=== PATIENT | female | born 1985 | race Caucasian/White ===

== ENCOUNTER 2020-11-10 11:28 | Outpatient (CLI) | payer OTHER, SELFPAY ==
[2020-11-10 12:38] LABS: Prealbumin 20.7 mg/dL (17.6-36.0)
[2020-11-10 13:15] LABS: Iron 44 ug/dL (37-170)
== END 2020-11-10 11:29 | disposition home or self-care (01) ==
LOC: ANHLAB 11:32
PROVIDERS: PCP Physician Assistant; Visit Provider Surgery Plastic and Reconstructive Surgery
DX: Z98.84 Bariatric surgery status (principal)
CPT/HCPCS: 36415; 83540; 84134

== ENCOUNTER 2020-11-17 12:22 | Outpatient (CLI) | payer OTHER, SELFPAY ==
[2020-11-20 10:33] LABS: Vitamin B1 9 nmol/L (8-30)
== END 2020-11-17 12:23 | disposition home or self-care (01) ==
LOC: ANHLAB 12:23
PROVIDERS: PCP Physician Assistant; Visit Provider Surgery Plastic and Reconstructive Surgery
DX: L57.4 Cutis laxa senilis (principal)
CPT/HCPCS: 36415; 84425

== ENCOUNTER → 2020-11-19 03:07 | Outpatient (CLI) | payer OTHER, SELFPAY ==
[2020-11-19 19:46] LABS: SARS-CoV-2 RNA PCR Negative
== END ==
PROVIDERS: PCP Physician Assistant; Visit Provider Surgery Plastic and Reconstructive Surgery
DX: Z01.812 Encounter for preprocedural laboratory examination (principal); Z20.822 Contact with and (suspected) exposure to COVID-19
CPT/HCPCS: C9803; U0003; U0005

== ENCOUNTER 2020-11-22 00:06 | Day surgery (SDC) | payer OTHER, SELFPAY ==
[2020-11-15 08:17] VITALS: BMI 28.6
[2020-11-22] VITALS (9 sets, daily range): BP systolic 100–130; BP diastolic 53–75; PULSE 67–110; RESP 14–18; TEMP 36.6–37.4; O2SAT 90–99
[2020-11-22] MEDS: LACTATED RINGERS 1,000 ML 30 ML IV CONT ×2 (10:13→14:21)
--- NOTE | 2020-11-22 10:23 | WPDANESEPPF ---
Anes - Initial Pre Proc Eval Procedure: Operation Date: 11/22/20 12:00 Proposed Procedures p Abdominoplasty - Ady Hardy MD Date/Time: 11/22/20 10:23 Surgeon: Ady Hardy MD Pre Op Diagnosis: Skin laxity Patient Data Age: 35 Gender: F Height: 5 ft 5 in Weight: 80.5 kg Last Vital Signs Temp 36.6 C 11/22/20 10:11 Pulse 72 11/22/20 10:11 BP 130/68 11/22/20 10:11 Pulse Ox 99 11/22/20 10:11 Allergies Allergy/AdvReac Type Severity Reaction Status Date / Time No Known Allergies Allergy Unverified 11/22/20 10:09 Home Medications Medication Instructions Recorded Confirmed Type escitalopram oxalate 10 mg tablet 10 mg PO DAILY 11/07/20 11/22/20 History acetaminophen 650 mg PO ONCE PRN 11/15/20 11/15/20 History ibuprofen 800 mg PO Q6H PRN 11/15/20 11/22/20 History Laboratory Tests 11/22/20 09:56 Cotinine Pending Patient hx anesthesia problems: none Family hx anesthesia problems: none [facility] Family History Family History Mother Family history of congestive heart failure Social History Social History Smoking status: Former smoker Tobacco type: e-cigarettes/vaping Additional smoking assessment comments: STOPPED SMOKING 2010, VAPING 2019 Alcohol intake: current Drinks per week: 1 Living arrangements: with family Anes - Eval Final PreProcedure Day of Procedure 11/22/20 10:23 Patient weight: overweight Heart: regular rate and rhythm Lungs: clear to auscultation Airway: Mallampati scale class 1 Neurological: alert and oriented Last oral intake: >/= 8 hours ASA classification: II Emergent: no Anesthetic plan: proceed Anesthesia type and monitoring: general and standard monitoring Informed Consent: The patient's anesthetic plan and its attendant risks and benefits were discussed with the patient/family/POA. Questions were solicited and answers provided to the satisfaction of the patient/family/POA.
--- NOTE | 2020-11-22 10:30 | WPDHPUPDATE1 ---
History and Physical Update Update Date/Time: 11/22/20 10:30 History and Physical has been reviewed, including an updated exam of the patient. There are NO changes in the patient's condition. Risks, benefits, and alternatives have been discussed and questions answered. Patient agrees to proceed with procedure.
[2020-11-22] MEDS: SCOPOLAMINE 1.5 MG PATCH TRANSDERM (10:42)
--- NOTE | 2020-11-22 10:54 | PM.PROC ---
Procedure Note - Detailed Date of procedure: 11/22/20 Pre-op diagnosis: Skin laxity Post-op diagnosis: same Procedure performed: Progressive tension abdominoplasty Description of procedure: She is here today for abdominoplasty. Previously and again today the risks, benefits, alternatives were discussed in extensive detail. I wanted her to be very realistic about the risks involved as well as expectations. She declines [id number] understanding she will likely have horizontal laxity following the procedure. We discussed aftercare and what to monitor for. I was very upfront about the risks of wound breakdown leading to loss of skin, open wounds, and need for additional procedures with permanent abdominal deformity. We discussed DVT/PE risks and management. Made sure answered all of her questions to her satisfaction today and consent was obtained. She was marked in the preoperative holding area with their verification. The patient was taken to the operating room placed supine on the operating table. Anesthesia was provided by anesthesiology. A guerrero catheter was started. She was prepped and draped in a standard sterile fashion. A surgical time-out was taken. I placed the patient in a flexed position to verify the upper and lower markings would reach. I then placed her supine. A thorough abdominal examination was completed. Stab incisions were made and used tumescent solution. A 10 blade was used to make the upper incision. I continued dissection down to the level of fascia. Elevated just what was necessary for repair of the diastasis and discontinuous undermining otherwise using a 4mm basket cannula without suction. I then again flexed the bed to verify the upper skin flap would reach the lower markings without tension. Once verified I placed her supine once again and a 10 blade used to make the lower incision. I elevated up to level the umbilicus and left the umbilicus intact on a well-vascularized stalk. The intervening tissue was removed. A 2 mm blunt cannula and Exparel which was mixed 20 cc in 100 cc for a total volume of 120 cc I injected deep to the fascia bilaterally as well as along the incision lines. I plicated the diastasis recti using 0 PDO stratafix barbed suture. This was in 2 separate layers using 2 separate sutures as well. I repaired around the umbilicus leaving plenty of room for well-vascularized stalk of the umbilicus with 2-0 PDS. I also plicated obliques using 0 PDO stratafix barbed suture in 2 seperate layers. The patient was flexed and starting from superior to inferior began plication using 2-0 Vicryl to obliterate all space in a standard progressive tension fashion. At the umbilicus I marked out the location of the skin and inset this with 3-0 Monocryl and 4-0 nylon. I continued the remainder of the plication using 2-0 Vicryl until I reached my lower planned scar line. I trimmed any excess skin of the upper flap making sure this was a tension-free closure. I then approximated using a 3 point suture with 2-0 Vicryl followed by 3-0 stratafix ,running subcuticular 4-0 Monocryl, and tissue glue. Fluffs and an abdominal binder were placed. The patient was transferred to the bed in a flexed position. Awoken and taken to the PACU without difficulty. All instrument and sponge counts were correct at the end of the case. Anesthesia: GLMA Surgeon: Ady Hardy MD Estimated blood loss (mL): 50 Drains: No Packing: No Pathology: none sent Complications: No immediate complications Condition: stable Findings: Tissue removed 3084.7 grams
[2020-11-22] MEDS: ceFAZolin 2 GM/D5W 50 ML 2 GM/50 ML BAG IVPB (11:12)
[2020-11-22] MEDS: LACTATED RINGERS IRRIG 1,000 ML, LIDOCAINE HCL 1% LOCAL INJ 50 ML, EPINEPHrine HCL INJ ... INFILTRATE ×2 (11:35)
[2020-11-22] MEDS: TRANEXAMIC ACID 1,000 MG/10 ML AMPUL 1000 MG IV PUSH (12:45)
[2020-11-22] MEDS: fentaNYL CITRATE INJ (*CRX) 100 MCG/2 ML VIAL 25 MCG IV PUSH ×2 (14:33→14:42)
--- NOTE | 2020-11-22 14:47 | SUR.PHASEI ---
O2 removed at 1446.
--- NOTE | 2020-11-22 15:27 | SUR.PHASEI ---
1525: Tried to give report report to RN and she has to call back.
--- NOTE | 2020-11-22 15:47 | OBPPTRN ---
Patient transferred to post room # 288 via bed. Oriented to unit, room, information board, rooming in, admission packet and security measures. Patient verbalizes understanding.
[2020-11-22] MEDS: LACTATED RINGERS 1,000 ML 125 ML IV CONT (16:09)
[2020-11-22] MEDS: oxyCODONE/ACETAMINOPHEN (*CRX) 5-325 MG TABLET PO (17:24)
[2020-11-22] MEDS: carisoprodoL (*CRX) 350 MG TABLET PO (17:24)
[2020-11-22] MEDS: ENOXAPARIN 40 MG/0.4 ML SYRINGE SUB-Q (21:00)
[2020-11-22] MEDS: DOCUSATE SODIUM 100 MG CAPSULE PO (21:00)
[2020-11-23] MEDS: oxyCODONE/ACETAMINOPHEN (*CRX) 5-325 MG TABLET PO ×2 (00:15→05:47)
[2020-11-23] MEDS: carisoprodoL (*CRX) 350 MG TABLET PO ×2 (00:15→05:47)
[2020-11-23 05:14] VITALS: BP 93/52; PULSE 69; RESP 16; TEMP 36.9
--- NOTE | 2020-11-23 06:38 | WPDPN ---
Progress Note: A&P Assessment and Plan (1) Skin laxity: Code(s): L57.4 - Cutis laxa senilis Status: Acute Assessment and Plan: She is doing very well after progressive tension abdominoplasty. Will discharge home. Follow up in 1 week. Today we had an extensive conversation about the care. Made sure answered all of her questions to her understanding. (2) History of weight loss surgery: Code(s): Z98.84 - Bariatric surgery status Status: Acute Time Spent With Patient Time with patient: 15 - 25 minutes Review of Systems Review of Systems: All systems reviewed & are unremarkable except as noted in HPI and below Exam Narrative: Exam Narrative: Abdomen is healing well. No signs of infection. No hematoma. No seroma. Good color and capillary refill. No calf tenderness. Negative Homans. Const: General: comfortable, no acute distress, alert and awake; No acute distress Orientation/consciousness: oriented to person HENMT: Head: normal to inspection Ears: external ears normal General nose exam: Normal external nose present Face and sinus: normal facial exam Eyes: General: appearance normal, both eyes and all related structures Periorbital: periorbital findings normal Eyelids: eyelids normal Conjunctivae: conjunctivae normal Neck: Neck: normal visual inspection Chest: Chest palpation & inspection: normal inspection of the chest Resp: Effort & Inspection: normal respiratory effort and able to speak in complete sentences GI: Inspection: normal to inspection Neuro: General: oriented to person Psych: Appearance: grossly normal Mental Status: mental status grossly normal Objective Data Vital Signs Vital Signs: Vital Signs - 24 hr 11/22/20 10:11 11/22/20 14:21 11/22/20 14:35 Temperature 36.6 C 36.7 C Pulse Rate 72 98 110 H Respiratory Rate 16 18 Blood Pressure 130/68 127/75 128/75 Pulse Oximetry 99 97 98 11/22/20 14:50 11/22/20 15:05 11/22/20 15:20 Temperature Pulse Rate 102 H 77 67 Respiratory Rate 14 16 14 Blood Pressure 111/65 111/61 114/62 Pulse Oximetry 90 92 93 11/22/20 15:35 11/22/20 16:00 11/22/20 21:05 Temperature 36.9 C 37.4 C Pulse Rate 82 68 78 Respiratory Rate 15 18 16 Blood Pressure 101/70 104/62 100/53 L Pulse Oximetry 97 98 11/23/20 05:14 Temperature 36.9 C Pulse Rate 69 Respiratory Rate 16 Blood Pressure 93/52 L Pulse Oximetry Intake/Output Intake/Output: Intake & Output 11/20/20 11/21/20 11/22/20 11/23/20 23:59 23:59 23:59 23:59 Intake Total 350 Output Total 430 Balance -80 Meds/Results Medications: Active Medications Generic Name Dose Route Start Last Admin Trade Name Freq PRN Reason Stop Dose Admin Carisoprodol 350 mg 11/22/20 18:00 11/23/20 05:47 Carisoprodol (*Crx) 350 Mg Tablet PO 350 mg Q6HR JAQUAN Administration Docusate Sodium 100 mg 11/22/20 21:00 11/22/20 21:00 Docusate Sodium 100 Mg Capsule PO 100 mg Q12HR JAQUAN Administration Enoxaparin Sodium 40 mg 11/22/20 21:00 11/22/20 21:00 Enoxaparin 40 Mg/0.4 Ml Syringe SUB-Q 40 mg DAILY@2100 JAQUAN Administration Escitalopram Oxalate 10 mg 11/23/20 09:00 Escitalopram Oxalate 10 Mg Tablet PO DAILY [facility] Morphine Sulfate 2 mg 11/22/20 14:10 Morphine Sulfate (*Crx) 2 Mg/Ml Inj IV PUSH Q2H PRN Pain Ondansetron HCl 4 mg 11/22/20 14:10 Ondansetron Inj 4 Mg/2 Ml Vial IV PUSH Q6H PRN Nausea Oxycodone/Acetaminophen 1 - 2 tablet 11/22/20 14:10 11/23/20 05:47 Oxycodone/Acetaminophen (*Crx) 5-325 Mg Tablet PO 2 tablet Q6H PRN Administration Pain Subjective Date/time seen: 11/23/20 06:38 She is doing very well after progressive tension abdominoplasty. Tolerating diet. Ambulating. Pain controlled. No nausea vomiting. No fevers or chills. No shortness of breath. No chest pain. No calf tenderness.
--- NOTE | 2020-11-23 06:43 | PM.DS ---
DS: Admitting Diagnosis Admitting Diagnosis Admitting Diagnosis: Skin laxity History weight loss surgery DS: Discharge Diagnosis Discharge Diagnosis (1) Skin laxity: Code(s): L57.4 - Cutis laxa senilis Status: Acute (2) History of weight loss surgery: Code(s): Z98.84 - Bariatric surgery status Status: Acute DS: Summary Hospital Course Hospital Course: She underwent progressive tension abdominoplasty be uneventfully. Overnight kept her for pain control. At the time of discharge she was doing well. Tolerating diet. Pain controlled. Ambulating. She has elected to proceed with ambulation as her DVT prophylaxis measure after discharge. Time Spent with Patient Time attestation: Total time spent providing and/or coordinating discharge services: 20 minutes Exam Narrative: Exam Narrative: Abdomen is healing well. No signs of infection. No hematoma. No seroma. Good color and capillary refill. No calf tenderness. Negative Homans. Const: General: comfortable, no acute distress, alert and awake; No acute distress Orientation/consciousness: oriented to person HENMT: Head: normal to inspection Ears: external ears normal General nose exam: Normal external nose present Face and sinus: normal facial exam Eyes: General: appearance normal, both eyes and all related structures Periorbital: periorbital findings normal Eyelids: eyelids normal Conjunctivae: conjunctivae normal Neck: Neck: normal visual inspection Chest: Chest palpation & inspection: normal inspection of the chest Resp: Effort & Inspection: normal respiratory effort and able to speak in complete sentences GI: Inspection: normal to inspection Neuro: General: oriented to person Psych: Appearance: grossly normal Mental Status: mental status grossly normal DS: Data Data Completed and Pending Labs on day of discharge: Labs from last 24 hours 11/22/20 09:56 Cotinine Pending Discharge Plan Discharge Patient Disposition: Home, Self-Care Discharge Instructions: POST OPERATIVE DISCHARGE INSTRUCTIONS FOR ADY HARDY M.D. [facility] [address] [place] [address] [address] for 24 hours after anesthesia and while you are taking pain medication. Take all prescribed medication as directed Diet as tolerated. No lifting or activity that raises blood pressure for 48 hours. Regular walking / ambulation. No showering until directed to. Once you shower do not take pain medication before showering as the combination of medication and heat may cause you to feel dizzy or pass out. No pools or tubs for 2 weeks. Call with any questions or concerns. Dressing Care: May shower. Abdominal binder 23 hours per day. Remove the Scopolamine patch that was placed behind your left ear in 72 hours or less. Wash your hands after touching. If you have any questions or concerns, please call the office . If it is after hours you will be directed to the conveyor console operator exchange. Shortness of breath, chest pain, or other medical emergency dial 911 / proceed to the Emergency Room. Stand Alone Forms: General Discharge Instructions Follow-up/Referrals: Ady Hardy MD [Physician] - 1 Week Discharge Medications: New carisoprodol 350 mg Tablet 350 mg PO Q6HR Qty: 0 RF: 0 docusate sodium 100 mg Capsule 100 mg PO Q12HR Qty: 0 RF: 0 oxycodone-acetaminophen 5-325 mg Tablet 1 - 2 tablet PO Q6H PRN (Reason: Pain) Qty: 0 RF: 0 Continued escitalopram oxalate [Lexapro] 10 mg tablet 10 mg PO DAILY RF: 0 Discontinued acetaminophen 325 mg Tablet 650 mg PO ONCE PRN (Reason: Pain) RF: 0 ibuprofen 200 mg Tablet 800 mg PO Q6H PRN (Reason: Pain) RF: 0
[2020-11-23 06:50] VITALS: BP 99/44; PULSE 78; RESP 20; TEMP 36.9
[2020-11-23] MEDS: DOCUSATE SODIUM 100 MG CAPSULE PO (08:00)
[2020-11-23] MEDS: ESCITALOPRAM OXALATE 10 MG TABLET PO (08:00)
[2020-11-24 15:53] LABS: Urine Cotinine NEGATIVE
== END 2020-11-23 08:27 | disposition home or self-care (01) ==
LOC: ANHSURGERY 10:42 → ANHOB2 16:03
PROVIDERS: PCP Physician Assistant; Visit Provider Surgery Plastic and Reconstructive Surgery
PROC: (CPT 15830; principal; 2020-11-22 12:00)
DX: Z41.1 Encounter for cosmetic surgery (principal); L57.4 Cutis laxa senilis; Z98.84 Bariatric surgery status; Z87.891 Personal history of nicotine dependence; Z79.899 Other long term (current) drug therapy
CPT/HCPCS: 15830; 15847; 80307; 99199; A9270; C9290; J0171; J0330; J0690; J1100; J1170; J1200; J1650; J2250; J2405; J2704; J3010; J7120

== ENCOUNTER → 2021-05-30 11:25 | Outpatient (REF) | payer OTHER, SELFPAY | LOC: ANHLAB 11:25 | PROVIDERS: PCP Physician Assistant; Visit Provider Nurse Practitioner | DX: C44.319 Basal cell carcinoma of skin of other parts of face (principal) | CPT/HCPCS: 88305 ==

== ENCOUNTER → 2021-07-10 09:52 | Outpatient (REF) | payer BC, SELFPAY | LOC: ANHLAB 09:52 | PROVIDERS: PCP Physician Assistant; Visit Provider Nurse Practitioner | DX: C44.319 Basal cell carcinoma of skin of other parts of face (principal) | CPT/HCPCS: 88305; 88331 ==

== ENCOUNTER 2021-07-13 10:00 | Outpatient (CLI) | payer OTHER, SELFPAY ==
[2021-07-13 10:17] LABS: Hematocrit 37.5 % (37.0-47.0); Hemoglobin 11.7 g/dL (12.0-15.0); Mean Corpuscular HGB Conc 31.2 g/dl (32-36); Mean Corpuscular Hemoglobin 26.3 pg (26-34); Mean Corpuscular Volume 84.3 fl (80-100); Mean Platelet Volume 9.6 fl (7.4-10.4); Platelet Count Result 265 k/mm3 (150-375); Red Blood Count 4.45 M/mm3 (4.2-5.4); Red Cell Distribution Width 13.9 % (11.5-14.5); White Blood Count 7.3 K/mm3 (4.5-10.0)
[2021-07-13 10:30] LABS: Albumin Level 4.4 g/dL (3.5-5.1); Anion Gap 5 mmol/L (8-16); Blood Urea Nitrogen 16 mg/dL (7-17); Calcium 9.4 mg/dL (8.4-10.2); Carbon Dioxide 28 mmol/L (22-30); Chloride 105 mmol/L (98-107); Estimated Glomerular Filt Rate > 60; Glucose 93 mg/dL (65-110); Potassium 4.5 mmol/L (3.4-5.0); Sodium 138 mmol/L (137-145)
[2021-07-13 10:37] LABS: Prealbumin 19.9 mg/dL (17.6-36.0)
[2021-07-13 10:37] LABS: Hemoglobin A1C 5.2 % (<5.7)
== END 2021-07-13 10:01 | disposition home or self-care (01) ==
PROVIDERS: PCP Physician Assistant; Visit Provider Surgery Plastic and Reconstructive Surgery
DX: Z01.812 Encounter for preprocedural laboratory examination (principal)
CPT/HCPCS: 36415; 80048; 82040; 83036; 84134; 85027

== ENCOUNTER 2021-07-20 00:36 | Day surgery (SDC) | payer OTHER, SELFPAY ==
[2021-07-17 10:49] VITALS: BMI 31.4
--- NOTE | 2021-07-17 10:59 | PC.NURSE ---
Report to the Outpatient Waiting Room, entrance under the green pavilion located off [facility], at time 0830 on date 07/20/21. OR Time: 1030. - You will be asked a series of questions to screen for COVID 19 for your protection. - A mask is required within the hospital. - No visitors are allowed at this time. Preoperative COVID Testing Requirements: + IN BEGINNING OF YEAR, EMAILING COVID CARD No COVID Test needed if: (proof is required; if not received patient will have Rapid Test prior to entry) - Patient has received COVID Vaccine at least 14 days prior to procedure date or - Patient has positive COVID test result within last 90 days of surgery date. COVID Test needed if above criteria is not met Patients may have clear liquids (water, carbonated beverages, clear teas, apple juice) until 3 hours prior to surgery with a maximum of 20 ounces. - No food from midnight until time of surgery Take the following medications with a SIP of water the morning of surgery: ESCITALOPRAM Medications to discontinue per physician: N/A Date to take last dose: N/A Please no make-up, nail irish, hairspray, perfume, deodorant, or body powder the day of surgery. No jewelry (including any body piercings) or valuables the day of surgery, leave them at home. Please take a shower or bath the night before, or the morning of, surgery with an antibacterial soap. Wear comfortable, loose fitting clothing. - Jewelry must be removed prior to entering the operating room. Rings and piercings that are not removed may be cut off. - The hospital will not accept responsibility for valuables. - Please leave all valuables, including medications, at home the day of surgery. If you are going home after surgery, a licensed sales route driver helper must drive you home. - NO public transportation without another adult. - We recommend that an adult stay with you for 24 hours following discharge. - We also recommend that you do not drive, make important decision, drink alcoholic beverages, or take any drugs that were not prescribed by your health care provider for at least 24 hours after your discharge time. Follow any additional instructions given to you from your surgeon. Telephone instructions given to ELIZABETH OLIVEIRA and asked if any additional questions and then verbalized understanding. Patient advised to call surgeon office or pre surgery nurse liaison [phone] if any additional questions.
--- NOTE | 2021-07-19 13:48 | WPDANESEPPF ---
Anes - Initial Pre Proc Eval Procedure: Operation Date: 07/20/21 10:30 Proposed Procedures p Bilateral Brachioplasty - Ady Hardy MD Date/Time: 07/19/21 13:48 Surgeon: Ady Hardy MD Pre Op Diagnosis: skin laxity Patient Data Age: 35 Gender: F Height: 1.63 m Weight: 83 kg Allergies Allergy/AdvReac Type Severity Reaction Status Date / Time No Known Allergies Allergy Verified 07/17/21 10:48 Home Medications Medication Instructions Recorded Confirmed Type escitalopram oxalate 10 mg tablet 10 mg PO DAILY 11/07/20 07/17/21 History ibuprofen 800 mg tablet 800 mg PO TID PRN #30 tablet 11/23/20 07/17/21 Rx docusate sodium 100 mg capsule 100 mg PO DAILY #14 cap 07/11/21 07/17/21 Rx oxycodone-acetaminophen 5 mg-325 1 tablet PO Q6H PRN #30 tablet 07/11/21 07/17/21 Rx mg tablet Patient hx anesthesia problems: none Family hx anesthesia problems: none Results Review: All pre-operative results and documents have been reviewed as part of the pre-operative evaluation. [facility] Past Medical History Medical History (Updated 07/19/21 @ 13:49 by Salbador Block MD) Anxiety Depression Obesity Skin laxity Family History Family History Mother Family history of congestive heart failure Social History Social History Years smoked: 10 Smoking status: Former smoker Tobacco type: cigarettes Smoking end date: 06/24/11 Additional smoking assessment comments: STOPPED SMOKING 2010, VAPING 2019 Alcohol intake: current Drinks per week: 1 Alcohol use details: SOCIAL Substance use: never Substance use type: does not use Living arrangements: with family Spiritual care concerns: No Anes - Eval Final PreProcedure Day of Procedure 07/19/21 13:48 Patient weight: obese Heart: regular rate and rhythm Lungs: clear to auscultation and normal air movement Airway: Mallampati scale class II Neurological: alert and oriented Last oral intake: >/= 8 hours ASA classification: II Emergent: no Anesthetic plan: proceed Anesthesia type and monitoring: general LMA Results Review: All pre-operative results and documents have been reviewed as part of the pre-operative evaluation. Informed Consent: The patient's anesthetic plan and its attendant risks and benefits were discussed with the patient/family/POA. Questions were solicited and answers provided to the satisfaction of the patient/family/POA.
[2021-07-20] VITALS (8 sets, daily range): BP systolic 109–133; BP diastolic 51–79; PULSE 77–86; RESP 13–16; TEMP 36.3–36.8; O2SAT 95–100
[2021-07-20] MEDS: LACTATED RINGERS 1,000 ML 30 ML IV CONT (09:03)
[2021-07-20 09:09] LABS: Urine Cotinine NEGATIVE
--- NOTE | 2021-07-20 09:48 | WPDHPUPDATE1 ---
History and Physical Update Update Date/Time: 07/20/21 09:48 History and Physical has been reviewed, including an updated exam of the patient. There are NO changes in the patient's condition. Risks, benefits, and alternatives have been discussed and questions answered. Patient agrees to proceed with procedure.
--- NOTE | 2021-07-20 10:11 | W.PM.PROC2 ---
Procedure Note - Detailed Date of Procedure 07/20/21 Pre-op Diagnosis skin laxity Post-op Diagnosis same Procedure Performed Bilateral brachioplasty Surgeon Ady Hardy MD Anesthesia general Description of Procedure Preoperatively the risks, benefits, alternatives were discussed in extensive detail. I want her to be very realistic about the risks involved as well as expectations. Made sure answered all of her questions to her satisfaction. Consent obtained. Patient was marked in the preoperative holding area with her verification. She was taken to the operating room placed supine on the operating room table. Anesthesia provided by anesthesiology and prepped and draped in a standard sterile fashion. Surgical time-out was taken. Stab incisions were made and I tumesced with a tumescent solution. Once adequate time for hemostasis was complete using a 5 mm basket cannula based on S.A.F.E. technique completely de-fatting the planned resection area. Using a close as you go strip avulsion technique a 10 blade used to make the proximal incision and I removed from proximal to distal the tissue stapling as place as we went. I then closed using 2-0 tensile strength Stratafix followed by 3-0 tensile strength Stratafix in a running subcuticular 4-0 Monocryl. Steri-Strips were placed as well as dressings. This was completed bilateral uneventfully. No evidence of neurovascular other structure injury. Patient was woken taken the PACU without difficulty. All instrument sponge counts were correct at the end of the case. Estimated Blood Loss 30 Drains No Packing No Pathology none sent Complications No immediate complications Condition stable Disposition PACU
[2021-07-20] MEDS: ceFAZolin 2 GM/D5W 50 ML 2 GM/50 ML BAG IVPB (10:15)
[2021-07-20] MEDS: LACTATED RINGERS IRRIG 1,000 ML, LIDOCAINE HCL 1% LOCAL INJ 50 ML, EPINEPHrine HCL INJ ... INFILTRATE (10:15)
[2021-07-20] MEDS: TRANEXAMIC ACID 1,000MG/ISO100 1,000 MG/100 ML BAG 200 MG IVPB (10:29)
== END 2021-07-20 14:35 | disposition home or self-care (01) ==
PROVIDERS: PCP Physician Assistant; Visit Provider Surgery Plastic and Reconstructive Surgery
PROC: (CPT 15836; principal; 2021-07-20 10:30)
DX: Z41.1 Encounter for cosmetic surgery (principal); L57.4 Cutis laxa senilis; Z87.891 Personal history of nicotine dependence; Z98.84 Bariatric surgery status; F41.8 Other specified anxiety disorders; E66.9 Obesity, unspecified; Z68.31 Body mass index [BMI] 31.0-31.9, adult; Z79.899 Other long term (current) drug therapy
CPT/HCPCS: 15836; 80307; J0171; J0690; J1100; J1170; J2250; J2405; J2704; J3010; J7120

== ENCOUNTER 2022-06-22 11:19 | Outpatient (CLI) | payer OTHER, SELFPAY ==
[2022-06-22 11:45] LABS: Albumin Level 4.1 g/dL (3.5-5.1)
[2022-06-22 11:55] LABS: Prealbumin 22.3 mg/dL (17.6-36.0)
[2022-06-22 12:23] LABS: Iron 38 ug/dL (37-170)
== END 2022-06-22 11:20 | disposition home or self-care (01) ==
LOC: ANHLAB 11:21
PROVIDERS: PCP Physician Assistant; Visit Provider Surgery Plastic and Reconstructive Surgery
DX: Z98.84 Bariatric surgery status (principal)
CPT/HCPCS: 36415; 82040; 83540; 84134; 84425

== ENCOUNTER 2022-07-06 00:30 | Day surgery (SDC) | payer OTHER, SELFPAY ==
[2022-06-22 14:59] VITALS: BMI 29.9
--- NOTE | 2022-06-22 15:03 | PC.NURSE ---
Report to the Outpatient Waiting Room, entrance under the green pavilion located off [facility], at time 0600 on date 07/06/22. Planned Procedure Time: 0730. Time changes happen often and if your time is changed the preop area will call you the afternoon before. - You and your visitor will be asked to self-screen and do not enter if you have any COVID symptoms. - Only one visitor is requested with a max of two and NO children visitors are allowed at this time. - The patient visitor may be requested to leave or wait in car when not with patient due to distancing restrictions. - A mask is REQUIRED within the hospital. Patients may have clear liquids (water, carbonated beverages, clear teas, apple juice) until 3 hours prior to surgery with a maximum of 20 ounces. - No food from midnight until time of surgery Take the following medications with a SIP of water the morning of surgery: LEXAPRO Medications to discontinue per physician: N/A Date to take last dose: N/A Please no make-up, nail albanian, hairspray, perfume, deodorant, or body powder the day of surgery. No jewelry (including any body piercings) or valuables the day of surgery, leave them at home. Please take a shower or bath the night before, or the morning of, surgery with an antibacterial soap. Wear comfortable, loose fitting clothing. - Jewelry must be removed prior to entering the operating room. Rings and piercings that are not removed may be cut off. - The hospital will not accept responsibility for valuables. - Please leave all valuables, including medications, at home the day of surgery. If you are going home after surgery, a licensed otr driver must drive you home. - NO public transportation without another adult if you receive anesthesia. - We recommend that an adult stay with you for 24 hours following discharge. - We also recommend that you do not drive, make important decision, drink alcoholic beverages, or take any drugs that were not prescribed by your health care provider for at least 24 hours after your discharge time. Follow any additional instructions given to you from your surgeon. If you or anyone in your household have experienced Covid symptoms in the past week, please notify your surgeon or the nurse liaison at the phone number below for possible testing. Telephone instructions given to PT - ELIZABETH OLIVEIRA and asked if any additional questions and then verbalized understanding. Patient advised to call surgeon office or pre surgery nurse liaison [phone] if any additional questions.
[2022-07-06] VITALS (8 sets, daily range): BP systolic 113–167; BP diastolic 70–87; PULSE 79–95; RESP 13–19; TEMP 36.2–36.4; O2SAT 92–100
[2022-07-06] MEDS: LACTATED RINGERS 1,000 ML 30 ML IV CONT ×3 (06:30→11:45)
--- NOTE | 2022-07-06 06:35 | P.PNAN_ITS ---
Anes - Initial Pre Proc Eval Procedure: Operation Date: 07/06/22 07:30 Proposed Procedures p Bilateral Brachioplasty - Ady Hardy MD Date/Time: 07/06/22 06:35 Surgeon: Ady Hardy MD Pre Op Diagnosis: skin laxity Patient Data Age: 36 Gender: F Height: 1.65 m Weight: 81.65 kg Allergies Allergy/AdvReac Type Severity Reaction Status Date / Time No Known Allergies Allergy Verified 06/22/22 14:58 Home Medications Medication Instructions Recorded Confirmed Type escitalopram oxalate 20 mg tablet 20 mg PO DAILY 06/22/22 06/22/22 History phentermine 37.5 mg tablet 37.5 mg PO DAILY 06/22/22 06/22/22 History Patient hx anesthesia problems: none Family hx anesthesia problems: none Results Review: All pre-operative results and documents have been reviewed as part of the pre- operative evaluation. [facility] Past Medical History Medical History Anxiety Depression Obesity Skin laxity Family History Family History Mother Family history of congestive heart failure Social History Social History Years smoked: 10 Smoking status: Current some day smoker Tobacco type: e-cigarettes/vaping Smoking end date: 06/24/11 Additional smoking assessment comments: STOPPED SMOKING 2010, VAPING 2019 Alcohol intake: current Drinks per week: 1 Alcohol use details: 2/MONTH Substance use: never Substance use type: does not use Living arrangements: with family Spiritual care concerns: No Anes - Eval Final PreProcedure Day of Procedure 07/06/22 06:35 Patient weight: obese Heart: regular rate and rhythm Lungs: clear to auscultation Airway: Mallampati scale class II Neurological: alert and oriented Last oral intake: >/= 8 hours ASA classification: II Emergent: no Anesthetic plan: proceed Anesthesia type and monitoring: general LMA and standard monitoring Results Review: All pre-operative results and documents have been reviewed as part of the pre- operative evaluation. Informed Consent: The patient's anesthetic plan and its attendant risks and benefits were discussed with the patient/family/POA. Questions were solicited and answers provided to the satisfaction of the patient/family/POA.
[2022-07-06] MEDS: SCOPOLAMINE 1.5 MG PATCH TRANSDERM (06:45)
[2022-07-06 07:05] LABS: Urine Cotinine NEGATIVE
--- NOTE | 2022-07-06 07:06 | WPDHPUPDATE1 ---
History and Physical Update Update Date/Time: 07/06/22 07:06 History and Physical has been reviewed, including an updated exam of the patient. There are NO changes in the patient's condition. Risks, benefits, and alternatives have been discussed and questions answered. Patient agrees to proceed with procedure.
--- NOTE | 2022-07-06 07:06 | W.PM.PROC2 ---
Procedure Note - Detailed Date of Procedure 07/06/22 Pre-op Diagnosis skin laxity Post-op Diagnosis Same Procedure Performed Revision bilateral brachioplasty Surgeon Ady Hardy MD Anesthesia General Findings Lipoaspirate 1450 cc Description of Procedure Here for the above procedures. This is a revisionary procedure and I outlined the limitations and increased risks of this procedure. Preoperatively risks, benefits, alternatives were discussed again today in extensive detail. I want to be very realistic about the risks involved as well as expectations. Made sure answered all of their questions to satisfaction. They voiced a clear understanding. Consent obtained. Patient was marked in the preoperative holding area with their verification. Taken to the operating placed supine on the operating table. Anesthesia was provided by anesthesiology. Prepped and draped in a standard sterile fashion. Surgical time-out was taken. Stab incisions were made and I tumesced with a tumescent solution. Once adequate time for hemostasis suction lipectomy was with a 4 mm basket cannula based on S.A.F.E. technique. This was completed based on preoperative planning, intraoperative observation, and rolling pinch test which was in full agreement. I completely de-fatted the planned resection area and a strip avulsion technique was completed. Starting proximal to distal a 10 blade was used to excise the intervening skin and this was tacked as we proceed to ensure good closure. This was closed using a 2-0 Quill, 3-0 strata fix, running subcuticular 4-0 Monocryl, and tissue glue. Dressings were placed. Tolerated the procedure well. Taken to the PACU without difficulty. All instrument sponge counts were correct at the end of the case. Estimated Blood Loss 30 Drains No Packing No Pathology None sent Complications No immediate complications Condition Stable Disposition PACU
[2022-07-06] MEDS: TRANEXAMIC ACID 1,000MG/ISO100 1,000 MG/100 ML BAG 200 MG IVPB (07:25)
[2022-07-06] MEDS: ceFAZolin 2 GM/D5W 50 ML 2 GM/50 ML BAG IVPB (07:25)
[2022-07-06] MEDS: LACTATED RINGERS IRRIG 1,000 ML, LIDOCAINE HCL 1% LOCAL INJ 50 ML, EPINEPHrine HCL INJ ... INFILTRATE (08:18)
--- NOTE | 2022-07-06 10:40 | SUR.PHASEI ---
Simple mask removed at 1040.
[2022-07-06] MEDS: ONDANSETRON INJ 4 MG/2 ML VIAL IV PUSH (11:35)
[2022-07-06] MEDS: fentaNYL CITRATE INJ (*CRX) 100 MCG/2 ML VIAL 25 MCG IV PUSH (11:44)
== END 2022-07-06 12:46 | disposition home or self-care (01) ==
PROVIDERS: PCP Physician Assistant; Visit Provider Surgery Plastic and Reconstructive Surgery
PROC: (CPT 15836; principal; 2022-07-06 07:30)
DX: L57.4 Cutis laxa senilis (principal)
CPT/HCPCS: 15878; 80307; A9270; J0171; J0330; J0690; J1100; J1170; J2250; J2405; J2704; J2710; J3010; J7120

== ENCOUNTER 2024-02-12 13:51 | Emergency (ER) | payer OTHER, SELFPAY ==
--- NOTE | ~2024-02-12 | XR_ITS ---
XR chest 2V Ordering provider: Sena Nobles MD History: 38 years Female with . headache/syncope . Comparison: September 09, 2013 FINDINGS: MEDIASTINUM: The cardiac silhouette is not enlarged. LUNGS: No infiltrates, effusions or pneumothorax. OTHER: No free air under the diaphragm. IMPRESSION: No acute cardiopulmonary pathology. Reviewed, dictated and finalized at location A.
--- NOTE | ~2024-02-12 | CT_ITS ---
CTA brain carotid Ordering provider: Sena Nobles MD History: . sudden severe KOROMA w/vision loss; eval for SAH/aneur . Comparison: None. Technique: CT angiogram head and neck was performed following timed intravenous injection of contrast . Thin slice axial images and reformatted coronal images were obtained. Three dimensional reformatted images of the brain were also obtained using a [employer] workstation. Radiation reduction technique ut ilized. The dose-length product was 1602.84 mGy-cm. FINDINGS: HEAD: --ANTERIOR AND MIDDLE CEREBRAL ARTERIES AND BRANCHES: Normal caliber and contour. --INTERNAL CAROTID ARTERIES: Normal caliber and contour. Possible anomalous arteries are seen extendi ng to the posterior fossa. --BASILAR ARTERY AND BRANCHES: Normal caliber and contour. No atheromatous disease. --POSTERIOR CEREBRAL ARTERIES: Normal caliber and contour --POSTERIOR COMMUNICATING ARTERIES: Bilateral demonstrated. --ANEURYSM: None visualized. --BRAIN: Normal. No acute process. --BONES AND SUPERFICIAL SOFT TISSUES: Normal. --PARANASAL SINUSES AND MASTOIDS: Normal.. NECK: --RIGHT CERVICAL CAROTID SYSTEM: Normal caliber and contour. Percent stenosis per NASCET criteria is 0%. No carotid dissection. Otherwise, no significant atheromatous disease or stenosis of the cervica l carotid system. --LEFT CERVICAL CAROTID SYSTEM: Normal caliber and contour. Percent stenosis per NASCET criteria is 0%. No carotid dissection. Otherwise, no significant atheromatous disease or stenosis of the cervical carotid system. --VERTEBRAL ARTERIES: Dominant left vertebral artery. Small caliber of the right. --VISUALIZED AORTIC ARCH AND BRANCHING VESSELS: Normal caliber and contour. No significant atheromato us disease. --SOFT TISSUES: Normal. --CERVICAL SPINE: Normal. IMPRESSION: 1. Normal CTA head and neck. Percent stenosis per NASCET criteria is 0%. Reviewed, dictated and finalized at location A.
[2024-02-12 13:56] VITALS: BP 116/85; PULSE 97; RESP 20; TEMP 36.4; O2SAT 98
--- NOTE | 2024-02-12 14:24 | ECG_ITS ---
Test Date: 2024-02-12 14:51:20 Measurements Intervals [place] Rate: 66 P: 30 KS: 124 QRS: 39 QRSD: 101 T: 53 QT: 393 QTc: 412 Interpretive Statements SINUS RHYTHM No previous ECG available for comparison Electronically Signed On 02-13-2024 14:25:16 CDT by Albert Gtz M.D.
--- NOTE | 2024-02-12 14:37 | ED.HA ---
HPI - Headache General Chief Complaint: Headache Stated Complaint: Dizziness, Neuro Symptoms Time Seen by Provider: 02/12/24 14:09 History of Present Illness HPI Narrative: 58-year-old female presenting with headache. Patient states that she was driving yesterday when she had a sudden severe headache associated with a brief moment of loss of vision. 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 States that since that time she has had a persistent headache as well as a strange taste in her mouth. No numbness or weakness. No speech changes. No fevers or infectious symptoms. Related Data Home Medications Medication Instructions Recorded Confirmed escitalopram oxalate 20 mg tablet 20 mg PO DAILY 06/22/22 07/06/22 phentermine 37.5 mg tablet 37.5 mg PO DAILY 06/22/22 06/22/22 Allergies Allergy/AdvReac Type Severity Reaction Status Date / Time No Known Allergies Allergy Verified 02/12/24 13:59 Review of Systems Review of Systems: All systems reviewed & are unremarkable except as noted in HPI and below PMFSH Past Medical History Medical History Anxiety Depression Gestational diabetes Obesity Skin laxity Surgical History Surgical History Delivery by section 2011 History of cholecystectomy 2010 History of gastrointestinal surgery gastric sleeve History of tubal ligation 2016 S/P abdominoplasty S/P brachioplasty 07/06/2022 - bilateral - 07/20/2021 Family History Family History Mother Family history of congestive heart failure Diabetes mellitus Hypertension Father Diabetes mellitus Grandparent Diabetes mellitus Breast cancer Social History Social History Years smoked: 10 Smoking status: Current some day smoker Tobacco type: e-cigarettes/vaping Smoking end date: 06/24/11 Additional smoking assessment comments: STOPPED SMOKING VAPING 2019 Alcohol intake: current Drinks per week: 1 Alcohol use details: 2/MONTH Substance use: never Substance use type: does not use Living arrangements: with family Spiritual care concerns: No Exam Narrative: GENERAL: Well-appearing, in no acute distress, pleasant cooperative HEAD: Normocephalic, atraumatic. EYES: PERRLA and EOMI. ENT: Nares clear, no rhinorrhea or epistaxis. Mucous membranes moist. NECK: Supple. CHEST: No respiratory distress. HEART: Regular rate and rhythm ABDOMEN: Soft, nontender, nondistended EXTREMITIES: Normal range of motion. No edema. SKIN: Warm, dry, no rash. NEURO: No focal deficits. Alert and oriented x3. 5/5 strength in all extremities, no pronator drift, [id number] intact, no facial droop or dysarthria or aphasia. PSYCH: Normal mood and affect. Course Vital Signs Vital signs: Vital Signs Temperature 97.6 F 02/12/24 13:56 Pulse Rate 97 02/12/24 13:56 Respiratory Rate 20 02/12/24 13:56 Blood Pressure 116/85 02/12/24 13:56 Pulse Oximetry 98 02/12/24 13:56 Oxygen Delivery Room Air 02/12/24 13:56 Temperature 98.5 F 02/12/24 17:20 Pulse Rate 73 02/12/24 17:20 Respiratory Rate 18 02/12/24 17:20 Blood Pressure 104/62 02/12/24 17:20 Pulse Oximetry 99 02/12/24 17:20 Oxygen Delivery Room Air 02/12/24 13:56 MDM - Headache MDM Narrative Medical decision making narrative: 38-year-old female presenting with a headache. Vitals are stable. Exam remarkable for the above. Blood work is unremarkable. Negative for flu, COVID, RSV. CTA head neck shows no acute abnormalities. Chest x-ray without acute abnormalities. Patient received a L of fluids and was updated on the workup. She is asking to go she needs to excelsior picker her kids. Advised Tylenol and ibuprofen and PCP follow-up. [place]
[2024-02-12] MEDS: SODIUM CHLORIDE 0.9% IV 1,000 ML 999 ML IV CONT (14:55)
[2024-02-12 15:01] LABS: Basophils Absolute Auto 0.1 K/mm3 (0.0-0.1); Basophils Percent Auto 1.3 % (0.2-1.2); Eosinophils Absolute Auto 0.2 K/mm3 (0-0.3); Hematocrit 35.9 % (37.0-47.0); Hemoglobin 11.8 g/dL (12.0-15.0); Immature Granulocyte Absolute 0.02 K/mm3 (0.00-0.031); Immature Granulocyte Percent A 0.3 % (0-0.5); Lymphocytes Absolute Auto 1.61 K/mm3 (0.9-3.2); Lymphocytes Percent Auto 25.8 % (18.3-44.2); Mean Corpuscular HGB Conc 32.9 g/dl (32-36); Mean Corpuscular Hemoglobin 27.9 pg (26-34); Mean Corpuscular Volume 84.9 fl (80-100); Monocytes Absolute Auto 0.4 K/mm3 (0.1-0.6); Monocytes Percent Auto 6.6 % (2.6-8.5); Neutrophils Absolute Auto 3.9 K/mm3 (1.3-6.7); Platelet Count Result 272 k/mm3 (150-375); Red Blood Count 4.23 M/mm3 (4.2-5.4); Red Cell Distribution Width 13.7 % (11.5-14.5); White Blood Count 6.2 K/mm3 (4.5-10.0)
[2024-02-12 15:22] LABS: Estimated CRCL calculation 75 ml/min; Estimated Glomerular Filt Rate > 60
[2024-02-12 15:37] LABS: Influenza A QL RT-PCR Negative (Negative); Influenza B QL RT-PCR Negative (Negative); RSV RNA, RT-PCR Negative (Negative); SARS-CoV-2 RNA PCR Negative (Negative)
[2024-02-12 15:40] LABS: Alanine Aminotransferase 13 U/L (6-35); Albumin Level 3.9 g/dL (3.5-5.1); Alkaline Phosphatase 76 U/L (38-126); Anion Gap 10 mmol/L (4-12); Aspartate Amino Transferase 22 U/L (14-36); Bilirubin,Total 0.2 mg/dL (0.2-1.3); Blood Urea Nitrogen 12 mg/dL (7-17); Calcium 8.9 mg/dL (8.4-10.2); Carbon Dioxide 22 mmol/L (22-30); Chloride 104 mmol/L (98-107); Estimated CRCL calculation 85 ml/min; Estimated Glomerular Filt Rate > 60; Glucose 112 mg/dL (65-110); Potassium 3.5 mmol/L (3.4-5.0); Sodium 136 mmol/L (137-145)
[2024-02-12 15:58] VITALS: BP 123/79; PULSE 59; RESP 18; O2SAT 100
[2024-02-12] MEDS: ACETAMINOPHEN 500 MG TABLET 1000 MG PO (17:17)
[2024-02-12] MEDS: IBUPROFEN 400 MG TABLET (17:18)
[2024-02-12 17:20] VITALS: BP 104/62; PULSE 73; RESP 18; TEMP 36.9; O2SAT 99
== END 2024-02-12 17:23 | disposition home or self-care (01) ==
PROVIDERS: Emergency Provider Emergency Medicine; PCP Physician Assistant
DX: R51.9 Headache, unspecified (principal); F17.290 Nicotine dependence, other tobacco product, uncomplicated; Z20.822 Contact with and (suspected) exposure to COVID-19
CPT/HCPCS: 36415; 70496; 70498; 71046; 80053; 85025; 87637; 93005; 96360; 99284; A9270; J7030; Q9967

== ENCOUNTER 2024-05-08 07:35 | Outpatient (CLI) | payer OTHER, SELFPAY ==
[2024-05-08 08:18] LABS: Basophils Absolute Auto 0.1 K/mm3 (0.0-0.1); Basophils Percent Auto 1.3 % (0.2-1.2); Eosinophils Absolute Auto 0.2 K/mm3 (0-0.3); Eosinophils Percent Auto 4.2 % (0-4.4); Hematocrit 34.6 % (37.0-47.0); Hemoglobin 11.2 g/dL (12.0-15.0); Immature Granulocyte Absolute 0.01 K/mm3 (0.00-0.031); Immature Granulocyte Percent A 0.2 % (0-0.5); Lymphocytes Absolute Auto 1.72 K/mm3 (0.9-3.2); Lymphocytes Percent Auto 31.1 % (18.3-44.2); Mean Corpuscular HGB Conc 32.4 g/dl (32-36); Mean Corpuscular Hemoglobin 27.5 pg (26-34); Mean Platelet Volume 9.9 fl (7.4-10.4); Monocytes Absolute Auto 0.4 K/mm3 (0.1-0.6); Monocytes Percent Auto 7.8 % (2.6-8.5); Neutrophils Absolute Auto 3.1 K/mm3 (1.3-6.7); Neutrophils Percent Auto 55.4 % (45.5-73.1); Platelet Count Result 241 k/mm3 (150-375); Red Blood Count 4.07 M/mm3 (4.2-5.4); Red Cell Distribution Width 13.5 % (11.5-14.5); White Blood Count 5.5 K/mm3 (4.5-10.0)
[2024-05-08 08:31] LABS: Alanine Aminotransferase 12 U/L (6-35); Albumin Level 3.8 g/dL (3.5-5.1); Alkaline Phosphatase 75 U/L (38-126); Anion Gap 1 mmol/L (4-12); Aspartate Amino Transferase 20 U/L (14-36); Bilirubin,Total 0.4 mg/dL (0.2-1.3); Blood Urea Nitrogen 14 mg/dL (7-17); Calcium 8.9 mg/dL (8.4-10.2); Carbon Dioxide 29 mmol/L (22-30); Chloride 105 mmol/L (98-107); Cholesterol 129 mg/dL (0-200); Estimated Glomerular Filt Rate > 60; Glucose 87 mg/dL (65-110); HDL Direct 48 mg/dL; Sodium 135 mmol/L (137-145); Triglycerides 58 mg/dL (<150)
[2024-05-08 08:41] LABS: LDL Cholesterol Direct 56 mg/dL
[2024-05-08 08:52] LABS: Free T4 Free Thyroxine 0.96 ng/mL (0.78-2.19)
[2024-05-08 09:28] LABS: Hemoglobin A1C 5.2 % (<5.7)
[2024-05-11 15:39] LABS: Insulin Level Total 4.4 uIU/mL
== END 2024-05-08 07:36 | disposition home or self-care (01) ==
LOC: ANHLAB 07:37
PROVIDERS: PCP Physician Assistant; Visit Provider Physician Assistant
DX: Z00.00 Encounter for general adult medical examination without abnormal findings (principal); Z13.220 Encounter for screening for lipoid disorders; Z13.29 Encounter for screening for other suspected endocrine disorder; Z68.26 Body mass index [BMI] 26.0-26.9, adult; Z86.32 Personal history of gestational diabetes
CPT/HCPCS: 36415; 80053; 80061; 83036; 83525; 84439; 84443; 85025

== ENCOUNTER 2024-05-19 13:51 | Outpatient (CLI) | payer OTHER, SELFPAY ==
[2024-05-19 14:18] LABS: Basophils Absolute Auto 0.1 K/mm3 (0.0-0.1); Eosinophils Absolute Auto 0.2 K/mm3 (0-0.3); Eosinophils Percent Auto 3.1 % (0-4.4); Hematocrit 36.7 % (37.0-47.0); Hemoglobin 11.7 g/dL (12.0-15.0); Immature Granulocyte Absolute 0.01 K/mm3 (0.00-0.031); Immature Granulocyte Percent A 0.1 % (0-0.5); Lymphocytes Absolute Auto 1.84 K/mm3 (0.9-3.2); Lymphocytes Percent Auto 25.6 % (18.3-44.2); Mean Corpuscular HGB Conc 31.9 g/dl (32-36); Mean Corpuscular Hemoglobin 27.1 pg (26-34); Mean Corpuscular Volume 85.2 fl (80-100); Mean Platelet Volume 9.8 fl (7.4-10.4); Monocytes Absolute Auto 0.4 K/mm3 (0.1-0.6); Monocytes Percent Auto 5.7 % (2.6-8.5); Neutrophils Absolute Auto 4.6 K/mm3 (1.3-6.7); Neutrophils Percent Auto 64.5 % (45.5-73.1); Platelet Count Result 270 k/mm3 (150-375); Red Blood Count 4.31 M/mm3 (4.2-5.4); Red Cell Distribution Width 13.7 % (11.5-14.5); White Blood Count 7.2 K/mm3 (4.5-10.0)
[2024-05-19 15:01] LABS: Iron 52 ug/dL (37-170)
[2024-05-19 15:11] LABS: Percent Iron Saturation 14 % (20-50)
[2024-05-19 15:38] LABS: Ferritin 6.38 ng/mL (6.24-137)
[2024-05-19 15:46] LABS: Folic Acid 7.4 ng/mL (2.76->20)
== END 2024-05-19 13:52 | disposition home or self-care (01) ==
LOC: ANHLAB 13:53
PROVIDERS: PCP Physician Assistant; Visit Provider Physician Assistant
DX: D64.9 Anemia, unspecified (principal)
CPT/HCPCS: 36415; 82607; 82728; 82746; 83540; 83550; 85025

== ENCOUNTER 2025-06-15 07:58 | Outpatient (CLI) | payer OTHER, SELFPAY ==
--- OUTSIDE RECORDS SUMMARY | 2025-06-15 08:03 | XMS_ITS | Patient Health Record ---
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 Ironer Name Role Phone Fiona Almanza Primary Care Provider Carlyn Hurley Unavailable [phone] DorothyGulshanKai Unavailable [phone] Allergies No Known Allergies Results Component Value Reference Range Notes UDT (12 Panel) Reviewed date:05/28/2025 09:41:48 AM Interpretation: Performing Lab: Notes/Report: Amphetamine (AMP) N Barbiturates (BAR) N Benzodiazepine (BZO) N Cocaine (KEHINDE) N Ecstasy (MDMA) N Methamphetamine (MET) N Morphine (MOP) N Methadone (MTD) N Oxycodone (OXY) N Phencyclidine (PCP) N Tricyclic Antidepressants (TCA) N Marijuana (THC) P Reason For Referral No Information Medications Medication SIG (Take, Route, Frequency, Duration) Notes Start Date End Date Status Atomoxetine HCl 25 MG Capsule 2 capsules Orally daily; Duration: 30 days 05/28/2025 Active Social History Tobacco Use: Social History Observation Description Date Details (start date - stop date) Former Smoker 03/24/2011 - 03/24/2011 Sex Assigned At : Social History Observation Description Sex Assigned At Female Social History Miscellaneous: Social Info Question Answer Notes Safety issues: Are there any firearms in the house? Ye s Social History Social Info Question Answer Notes Household: Marital Status: Number of Adults in household: 2 Number of Children in Household: 2 Level of Education: Finished High School Drug/Alcohol: Social Info Question Answer Notes Drugs Have you used drugs other than those for medical reasons in the past 12 months? Yes Methamphetamine? No Crack? No LSD? No Ecstacy? No Prescription opiates? No Marijuana? Yes Ketamine? No PCP? No Is there a minor (18 years or younger) at risk at home? No Are you still using? No AUDIT-C (Standard) Did you have a drink containi ng alcohol in the past year? Yes Points 2 Interpretation Positive How often did you have six or more drinks on one occasion in the past year? Less than monthly (1 point) How many drinks did you have on a typical day when you were drinking in the past year? 1 or 2 drinks (0 point) How often did you have a drink containing alcohol in the past year? Monthly or less (1 point) Tobacco Use: Social Info Question Answer Notes Tobacco Control (Standard) Tobacco use: Former smoker When did you start smoking? 03/24/2011 When did you stop smoking? 03/24/2011 How long has it been since you last smoked? 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 Marijuana use: Uses two pinches almost nightly for sleep for past year and a half Problems Problem Type SNOMED Code ICD Code Onset Dates Problem Status W/U Status Risk Notes Problem Attention deficit hyperactivity disorder (667646803) Attention-deficit hyperactivity disorder, unspecified type (F90.9) Active confirmed Problem Attention deficit hyperactivity disorder (902614514) Attention deficit hyperactivity disorder (ADHD), unspecified ADHD type (F90.9) Active confirmed Vital Signs Heart Rate 71 /min 06/11/2025 Blood pressure diastolic 73 mm Hg 06/11/2025 Weight-kg 74.39 kg 06/11/2025 Blood pressure systolic 108 mm Hg 06/11/2025 Weight 164 lbs 06/11/2025 Encounters Encounter Location Date Provider Diagnosis [facility] [address] [place] [address] 05/28/2025 Carlyn Hernandez Attention-deficit hyperactivity disorder, unspecified type F90.9 [facility] [address] [place] [address] 06/04/2025 Kai De La Cruz Attention deficit hyperactivity disorder (ADHD), unspecified ADHD type F90.9 [facility] [address] [place] [address] 06/11/2025 Carlyn Hernandez Attention deficit hyperactivity disorder (ADHD), unspecified ADHD type F90.9 Assessments Encounter Date Diagnosis (ICD Code) Assessment Notes Treatment Notes Treatment Clinical Notes Section Notes 05/28/2025 Attention-defici t hyperactivity disorder, unspecified type (ICD-10 - F90.9) Patient reports worsening distractibility , forgetfulness, and difficulty completing tasks over the past 6-12 months. Symptoms include mind racing, anxiety during conversations, and physical symptoms such as sweating. No prior ADHD medication use; family history of ADHD in daughters and psychiatric conditions in parents. Patient uses marijuana nightly for sleep and previously discontinued Lexapro due to side effects. ADHD computerized testing planned to objectively assess symptoms. - Order computerized ADHD testing. - Start Strattera 25 mg; plan to increase to 50 mg next week and titrate up to 80-100 mg as needed. - Monitor response to Strattera while awaiting ADHD test results. - Discuss stimulant options if non-stimulant therapy is ineffective, with requirement for negative drug test if considering stimulants. 06/11/2025 Attention deficit hyperactivity disorder (ADHD), unspecified ADHD type (ICD-10 - F90.9) Symptoms include inattention, impulsivity, and hyperactivity. Patient experiences impaired spatial working memory and severe difficulty with short term memory for visual spatial information. Challenges noted with maintaining consistent attention, attentional focus, and controlling impulsive response. Mildly slowed visual processing speed and inconsistent cognitive control observed. Reduced accuracy potential tied to distractibility . Currently managed with Strattera, with ongoing evaluation of medication efficacy and side effects. - Continue Strattera at current dose. - Order urine drug screen prior to switching to stimulant medication. - Plan to switch to stimulant medication (e.g., Adderall XR) after confirming clean drug screen. - Follow up four weeks after starting stimulant medication. 06/04/2025 Attention deficit hyperactivity disorder (ADHD), unspecified ADHD type (ICD-10 - F90.9) Assessment Date: 2025-06-04 Date of : 1985 Gender Group: Female, Age 35-44 ADHD Assessment Interpretation: The ASRS v1.1 Part A result is 5, which is above the threshold of 3 and therefore indicative of ADHD. This suggests self-reported behaviors aligned with inattention, impulsivity, or hyperactivity. Cognitive testing shows two markers outside the typical range, most notably: - Spatial Working Memory is significantly impaired, with a score at the 0th percentile, indicating severe difficulty with short-term memory for visual-spatial information.- Sustained Attention to Response Task (SART) reveals commission errors at the 12th percentile, suggesting challenges with maintaining consistent attentional focus and controlling impulsive responses. Other supporting findings include: - Attention task reaction time is in the 36th percentile, reflecting mildly slowed visual processing speed.- Reaction time variability in both response inhibition and sustained attention tasks is in the lower range, indicating inconsistent cognitive control.- Impulsivity is noted as less accurate, but not faster, reflecting reduced accuracy potentially tied to distractibility or task disengagement. These cognitive results align with the ADHD-indicative ASRS score and reflect deficits in working memory and sustained attention, common in ADHD presentations. Recommendations: 1. Non-stimulant ADHD medication should be considered as the first-line treatment.2. Stimulant medication may be considered if the patient is not currently using or abusing drugs, alcohol, or cannabis. Prior to prescribing, a routine urine drug screen is advised. Ongoing monitoring of blood pressure and weight is recommended during stimulant use.3. Non-pharmacologica l interventions are highly recommended. These include cognitive training for working memory, mindfulness practices to improve attention control, behavioral coaching, structured daily routines, and task management strategies.4. Clinical evaluation and interview are essential to confirm diagnosis and guide personalized treatment planning. Findings support an ADHD profile with both subjective and objective evidence of attention and memory-related challenges. 05/28/2025 Other Learning About Depression Screening material was printed Plan Of Treatment Next Appt Details Provider Name:Carlyn Tomasz Irelandeddie tomasz, 07/23/2025 08:30:00 AM, [address] [place] [address] [address], [facility] [address], [place], [address], Insurance Providers Payer Name Payer Address Payer Phone Subscriber Number Group Number Insured Name Patient Relationship to Insured Coverage Start Date Coverage End Date [facility] [address] [place] [address] [id number] Sena Hercules Self - patient is the insured Medical (General) History Medical History History ICD Code abdominal aortic aneurysm: No atrial fibrillation: No chronic fatigue syndrome: No essential tremor: No hyperlipidemia: No hypertension: No Parkinson's disease: No restless leg syndrome: Yes stroke: No subdural hematoma: No type 1 diabetes mellitus: No type 2 diabetes mellitus: No vitamin B12 deficiency: No vitamin D deficiency: No Attention-deficit hyperactivity disorder
--- OUTSIDE RECORDS SUMMARY | 2025-06-15 08:03 | XMS_ITS | Clinical Summary ---
Author Organization [facility] Address [address] [place] [address] Care Team Providers Care Card Cutter Helper Name Role Phone Fiona Shea Primary Care Pr ovid Source Comments [facility],non-owned Affiliates and Associated Physician Practices is amultiple site organization consisting of ambulatory clinics and hospital sitesin [place], [place], [place] and [place]. This disclosure is being madepursuant to the Care Everywhere program and may not contain all information available regarding this patient. Last updated 18.[facility] Allergies No known active allergies Medications * Be aware that medications may not be up to date on this document. Alwaysverify current medications with the patient. norgestimate-eth inyl estradiol (PREVIFEM) 0.25-35 MG-MCG tablet Take 1 Tab by mouth once daily. 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 Gender Identity Not on file Sexual Orientation Not on file Plan of Treatment Health Maintenance Due Date Last Done Comments HIV SCREENING 2001 HEPATITIS C SCREENING 07/23/2004 DTAP/TDAP/TD VACCINES (1 - Tdap) 2005 HEPATITIS B VACCINE (1 of 3 - 19+ 3-dose series) 2005 HPV VACCINE (1 - 3-dose SCDM series) 2013 DEPRESSION SCREENING 06/24/2024 COVID-19 VACCINE (1 - 2024-2 6 season) 2025 INFLUENZA VACCINE (#1) 2025 ZOSTER VACCINE (1 of 2) 2036 HIB VACCINE Aged Out No longer eligi ble based on patient's age to complete this topic MENINGOCOCCAL (Group B) VACC INE SHARED DECISION-MAKING Aged Out No longer eligibl e based on patient's age to complete this topic MENINGOCOCCAL GROUPS A/C/Y/W VACCINE Aged Out No longer eligible b ased on patient's age to complete this topic PNEUMOCOCCAL VACCINE Aged Out No long er eligible based on patient's age to complete this topic Care Teams Card Cutter Helper Relationship Specialty Start Date End Date Fiona Shea PA [address] [place] [address] PCP - General 07/12/21
[2025-06-15 08:09] LABS: Hematocrit 38.1 % (37.0-47.0); Hemoglobin 12.2 g/dL (12.0-15.0)
== END 2025-06-15 07:59 | disposition home or self-care (01) ==
PROVIDERS: PCP Physician Assistant; Visit Provider Student in an Organized Health Care Education/Training Program
DX: N93.9 Abnormal uterine and vaginal bleeding, unspecified (principal); D64.9 Anemia, unspecified; E66.3 Overweight; Z68.26 Body mass index [BMI] 26.0-26.9, adult; Z00.00 Encounter for general adult medical examination without abnormal findings
CPT/HCPCS: 36415; 85014; 85018

== ENCOUNTER 2025-06-22 01:12 | Day surgery (SDC) | payer OTHER, SELFPAY ==
--- NOTE | 2025-06-14 14:30 | PC.NURSE ---
[facility] has started construction of its new state of the art ER which will open Spring 2026. With this, we anticipate parking may be a challenge for some our surgical patients and families. Parking spaces are limited but are available for all Surgical, obstetrics, and ER patients sharing this lot. If you arrive and find you are having a hard time finding a parking space, please note that we understand the challenges, please drive around the hospital and park near Hospital Entrance 1. When you enter this entrance, you can ask a volunteer to direct or take you back to the surgical waiting area to check in. We appreciate everyone?s understanding of these expected challenges while we build for your future. Report to the Outpatient Waiting Room, entrance under the green pavilion located off [address], at time _0600_ on date _06/22/25__. Planned Procedure Time: _0730_.? Time changes happen often and if your time is changed the preop area will call you the afternoon before. - You and your visitor will be asked to self-screen and do not enter if you have any COVID symptoms. Please call surgeon if you need to reschedule. - A mask is optional within the hospital at this time. Patients may have clear liquids (water, carbonated beverages, clear teas, apple juice) until 3 hours prior to surgery with a maximum of 20 ounces. - No food from midnight until time of surgery and no smoking, or chewing tobacco (or any form of nicotine). No chewing gum, candy or mints. Take only the following medications with a SIP of water on the morning of surgery: NONE DO NOT STOP ANY OF YOUR OTHER PRESCRIPTION MEDICATIONS PRIOR TO SURGERY EXCEPT THE FOLLOWING Hold all vitamins and supplements for 3 days per anesthesiologist. Medications to discontinue per physician Date to take last dose Please no make-up, nail cape verdean, hairspray, perfume, deodorant, or body powder the day of surgery.? No jewelry (including any body piercings) or valuables the day of surgery, leave them at home.? Please take a shower or bath the night before, or the morning of, surgery with an antibacterial soap.? Wear comfortable, loose fitting clothing.? Children are encouraged to wear pajamas. - Jewelry must be removed prior to entering the operating room.? Rings and piercings that are not removed may be cut off. - The hospital will not accept responsibility for valuables.? - Please leave all valuables, including medications, at home the day of surgery. If you are going home after surgery, a licensed emergency vehicle driver must drive you home.? - NO public transportation without another adult if you receive anesthesia. - We recommend that an adult stay with you for 24 hours following discharge. - We also recommend that you do not drive, make important decision, drink alcoholic beverages, or take any drugs that were not prescribed by your health care provider for at least 24 hours after your discharge time. For Pediatric surgeries, we recommend two adults accompany the child home. Follow any additional instructions given to you from your surgeon. Telephone instructions given to _PATIENT__and asked if any additional questions and then verbalized understanding. Patient advised to call surgeon office or pre surgery nurse liaison [phone] if any additional questions.
[2025-06-14 14:39] VITALS: BMI 28.3
--- NOTE | 2025-06-21 17:35 | P.HP_ITS ---
H&P: HPI History of Present Illness Date/Time: 06/21/25 17:35 Chief Complaint: Abnormal uterine bleeding Narrative: 39-year-old female who presents for hysteroscopy, D&C, endometrial ablation for management of abnormal uterine bleeding. Review of Systems Cardiovascular: Cardiovascular: Denies chest pain, Denies leg edema, Denies palpitations, Denies dyspnea and Denies dyspnea on exertion Respiratory: Respiratory: Denies cough, Denies dyspnea and Denies dyspnea on exertion Gastrointestinal: Gastrointestinal: Denies abdominal pain, Denies constipation, Denies diarrhea, Denies nausea and Denies vomiting Genitourinary: Genitourinary: Denies hematuria, Denies urinary frequency, Denies dysuria, Denies pelvic pain, Denies urinary incontinence and Denies vaginal discharge Neurologic: Reports system reviewed and no additional complaints, except as documented Psychiatric: Psychiatric: Reports no additional psychiatric complaints Endocrine: Endocrine: Denies palpitations PMFSH Past Medical History Medical History Gestational diabetes Obesity Depression Anxiety Skin laxity Surgical History Surgical History S/P abdominoplasty S/P brachioplasty 07/06/2022 - bilateral - 07/20/2021 History of cholecystectomy 2011 Delivery by section 2012 History of gastrointestinal surgery gastric sleeve History of tubal ligation 2016 Family History Family History Mother Family history of congestive heart failure Diabetes mellitus Hypertension Father Diabetes mellitus Grandparent Diabetes mellitus Breast cancer Social History Social History (Updated 01/08/25 @ 10:59 by Lo Hdz CMA) Smoking packs per day: 0.2 Smoking cigarettes per day: 4.0 Years smoked: 7 Smoking pack-years: 1.40 Smoking status: Former smoker Tobacco type: cigarettes and e-cigarettes/vaping Smoking end date: 06/24/11 Additional smoking assessment comments: QUIT 2022 Alcohol intake: current Drinks per week: 1 Alcohol use details: 6 PER YR Substance use: never Substance use type: marijuana Other substance usage details: NIGHTLY FOR SLEEP, GUMMIES Lack of Transportation: No Lack of Food: Never True Current Housing: I Have Housing Concerned About Future Housing: No Difficulty Paying Gas/Electric Bills: No Difficulty Paying for Meds: No Currently Unemployed: No Education: High School Diploma/GED Difficulty w/ Childcare or Family Care: No Living arrangements: with family Spiritual care concerns: No Meds Home Medications and Allergies Home Medications ?Medication ?Instructions ?Recorded ?Confirmed ?Type No Home Medications 01/08/25 01/08/25 H istory Allergies Allergy/AdvReac Type Severity Reaction Status Date / Time No Known Allergies Allergy Verified 06/14/25 14:22 Exam Const: General: no acute distress Eyes: EOM: EOMs intact bilaterally Neck: Neck: supple Thyroid: thyroid normal Chest: Breast/axilla inspection: normal inspection of the breasts Breast/axilla palpation: normal palpation of the breasts, normal palpation of the axillae and no axillary lymphadenopathy Resp: Effort & Inspection: normal respiratory effort Auscultation: clear to auscultation bilaterally Cardio: Rate: regular rate Rhythm: regular rhythm GI: Inspection: non-distended GI Palp: Yes Soft to palpation, No Tenderness to palpation present (GI) and No Guarding due to palpation present (GI) Auscultation: normal bowel sounds : General: No bladder normal to palpation External Female Exam: normal external appearance Speculum Exam - Vagina: normal vaginal discharge and No vaginal bleeding Speculum Exam - Cervix: nontender Bimanual exam- vagina & uterus: No bladder normal to palpation and No Cervical tenderness present OB/external & speculum: No vaginal bleeding Skin: General skin exam: normal color and no rashes or lesions noted Neuro: Cognition (Neuro): normal cognition Speech: normal speech Extrem: General: normal to inspection and no edema Psych: Mental Status: mental status grossly normal Affect: normal affect Assessment and Plan Assessment and plan (1) Abnormal uterine bleeding (AUB): Code(s): N93.9 - Abnormal uterine and vaginal bleeding, unspecified Status: Acute Plan patient reports heavy menses Patient has been dealing with heavy menses for some time Patient has considered endometrial ablation in the past Patient has had tubal ligation for contraception She is interested in proceeding with endometrial ablation Risks, benefits, alternatives discussed Patient had a normal pelvic ultrasound in 2022 Will proceed with hysteroscopy, D&C, endometrial ablation
--- OUTSIDE RECORDS SUMMARY | 2025-06-22 01:16 | XMS_ITS | Clinical Summary ---
Author Organization [facility] [employer] Address [address] [place] [address] Care Team Providers Care Assistant Loan Processor Name Role Phone Fiona Shea Primary Care Pr ovid Source Comments [facility] [employer],non-owned Affiliates and Associated Physician Practices is amultiple site organization consisting of ambulatory clinics and hospital sitesin [place], [place], [place] and [place]. This disclosure is being madepursuant to the Care Everywhere program and may not contain all information available regarding this patient. 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
--- OUTSIDE RECORDS SUMMARY | 2025-06-22 01:17 | XMS_ITS | Data Portability ---
[facility] Address [address] [facility] [place] [address] Assessment Encounter Date Assessment Date Assessment LastModified by Organization Details LastModified Time 02/07/2024 02/07/2024 Pap smear: [address] Aguirre Exam isn't dental visits up-to-date [email or web address] Not available 02/23/2024 00:18:47 Plan of Treatment Reminders Order Date Submit Date Provider Last Modified By Organization Details Last Modified Time Details Appointments None recorde d. Lab TSH + free T4, serum 2024 025 [email or web address] [facility], [address], [place], [address], 5 10:02:06 lipid panel, serum 2024 025 tcarterma [facility], [address], [place], [address], 5 10:02:06 HbA1c (hemogl obin A1c), blood 2024 025 tcarterma [facility], [address], [place], [address], 5 10:02:06 CMP, serum or plasma 2024 025 tcarterma [facility], [address], [place], [address], 5 10:02:06 CBC w/ auto diff 2024 025 [email or web address] [facility], [address], [place], [address], 5 10:02:06 vitamin B12 + folate, serum or blood 2024 025 siva [facility], [address], [place], [address], 5 10:02:06 iron + TIBC + ferriti n, serum 2024 025 siva [facility], [address], [place], [address], 5 10:02:06 insulin , serum 2024 025 siva [facility], [address], [place], [address], 5 10:02:06 TSH + free T4, serum 2023 024 RENAE [facility], [address], [place], [address], 4 15:31:38 insulin , serum 2023 024 aashish [facility], [address], [place], [address], 4 16:13:03 HbA1c (hemogl obin A1c), blood 2023 024 aashish [facility], [address], [place], [address], 4 16:12:11 lipid panel, serum 2023 024 RENAE [facility], [address], [place], [address], 4 15:31:38 CMP, serum or plasma 2023 024 RENAE [facility], [address], [place], [address], 4 15:31:37 CBC w/ auto diff 2023 024 RENAE [facility], [address], [place], [address], 4 13:08:33 pap, IG + HPV, cervica l 2016 017 RENAE [facility], [address], [address], [place], [address], 7 20:09:22 CBC w/ auto diff 2016 017 RENAE [facility], [address], [address], [place], [address], 7 06:08:16 ferriti n, serum or plasma 2016 017 RENAE [facility], [address], [address], [place], [address], 7 06:08:20 iron + total iron-bi nding capacit y (TIBC), serum 2016 017 RENAE [facility], [address], [address], [place], [address], 7 06:08:18 TSH, ultra-s ensitiv e, serum 2016 017 RENAE [facility], [address], [address], [place], [address], 7 06:08:19 HbA1c (hemogl obin A1c), blood 2016 017 RENAE ESPARZA, [address], [address], [place], [address], 7 06:08:19 lipid panel, serum 2016 017 RENAE ESPARZARP, [address], [address], [place], [address], 7 06:08:18 CMP, serum or plasma 2016 017 RENAE ESPARZARP, [facility] [address], [address], [place], [address], 7 06:08:17 bacteri al vaginos is + vaginit is panel, vaginal - Z11.3 2016 017 [facility], [facility] [address], [address], [place], [address], 7 06:04:45 HSV (1+2) DNA, qual, PCR, unspeci fied specime n - Z11.3 2016 017 [facility], [facility], [address], [place], [address], 7 06:04:45 culture , vaginal /rectal , strepto coccus group B - Z11.3 2016 017 RENAE [facility], [facility], [address], [place], [address], 7 06:04:46 pap, IG + HPV, cervica l 2015 016 RENAE [facility], [facility] [address], [address], [place], [address], 6 06:05:17 bacteri al vaginos is + vaginit is panel, vaginal 2015 016 [facility], [address], [address], [place], [address], 6 06:04:43 HSV (1+2) DNA, qual, PCR, unspeci fied specime n 2015 016 [facility], [address], [address], [place], [address], 6 06:04:43 culture , vaginal /rectal , strepto coccus group B 2015 016 [facility], [address] [place] [address], [address], [place], [address], 6 06:04:44 Referral psychia trist referra l - adhd evaluat ion. 2024 025 [facility], [address], [place], [address], 5 10:02:33 dermato logist referra l - establi care. general skin check 2024 025 [facility], [address] [place] [address] , [place], [address], 5 11:22:47 Procedures None recorde d. Surgeries None recorde d. Imaging None recorde d. Medication Orders cyclobe nzaprin e 10 mg tablet 2024 025 [id number], [address] [facility] [address], [place], [place], [id number], 5 10:02:30 ferrous sulfate 134 mg (27 mg iron) tablet 2016 017 [id number], [address], [place], [address], 0 16:06:57 multivi tamin tablet 2016 017 [id number], [address], [place], [address], 0 16:07:14 Calcium 600 with Vitamin D3 600 mg-10 mcg (400 unit) chewabl e tablet 2016 017 [id number], [address], [place], [address], 0 16:06:41 Patient TargetsNo targets recorded. Patient Instructions Encounter Date Encounter Id Patient Instructions Last Modified By Organization Details Last Modified Time 12/01/2015 [id number] Care at Home With Your Baby: Care Instructions mwasserman Not available 12/01/2015 12:03:43 note to return to work/school mwasserman Not available 12/01/2015 12:03:43 01/23/2017 [id number] anemia: care instructions mwasserman Not available 01/23/2017 11:06:48 09/29/2019 [id number] dehydration: care instructions mwasserman Not available 09/29/2019 16:16:29 hydrotherapy* mwasserman Not available 0 09/29/2019 16:16:29 Reason for Referral Psychiatrist Referral for Di sturbance of attention adhd evaluation. 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 general skin check Referring Physician: Fiona Junior, Internal Medicine, Encounter Date: 02/26/2025 Results Created Date Observation Date Name Description Value Unit Range Abnormal Flag Note LastModifiedBy Organization Detail LastModifiedTime 11/03/19 16 11/03/2015 urina lysis , dipst ick Leukocytes Modera te Not Available In-Office Order Internal Use Only DO Not Attach Compendium DO Not Attach Compendium, Do Not Delete/merge, 11/03/2015 12:24:02 11/03/19 16 11/03/2015 urina lysis , dipst ick Nitrite positi ve Not Available In-Office Order Internal Use Only DO Not Attach Compendium DO Not Attach Compendium, Do Not Delete/merge, 11/03/2015 12:24:02 11/03/19 16 11/03/2015 urina lysis , dipst ick Urobilinogen .2 Not Available In-Of fice Order Internal Use Only DO Not Attach Compendium DO Not Attach Compendium, Do Not Delete/merge, 11/03/2015 12:24:02 11/03/19 16 11/03/2015 urina lysis , dipst ick Protein Negati ve Not Available In-Office Order Internal Use Only DO Not Attach Compendium DO Not Attach Compendium, Do Not Delete/merge, 11/03/2015 12:24:02 11/03/19 16 11/03/2015 urina lysis , dipst ick pH 5.5 Not Available In-Office Order Internal Use Only DO Not Attach Compendium DO Not Attach Compendium, Do Not Delete/merge, 11/03/2015 12:24:02 11/03/19 16 11/03/2015 urina lysis , dipst ick Blood Modera te Not Available In-Office Order Internal Use Only DO Not Attach Compendium DO Not Attach Compendium, Do Not Delete/merge, [id number] 11/03/2015 12:24:02 11/03/19 16 11/03/2015 urina lysis , dipst ick Specific [place] 1.005 Not Available In-Off ice Order Internal Use Only DO Not Attach Compendium DO Not Attach Compendium, Do Not Delete/merge, 11/03/2015 12:24:02 11/03/19 16 11/03/2015 urina lysis , dipst ick Ketone Negati ve Not Available In-Office Order Internal Use Only DO Not Attach Compendium DO Not Attach Compendium, Do Not Delete/merge, 11/03/2015 12:24:02 11/03/19 16 11/03/2015 urina lysis , dipst ick Bilirubin Negati ve Not Available In-Office Order Internal Use Only DO Not Attach Compendium DO Not Attach Compendium, Do Not Delete/merge, [id number] 11/03/2015 12:24:02 11/03/19 16 11/03/2015 urina lysis , dipst ick Glucose Negati ve Not Available In-Office Order Internal Use Only DO Not Attach Compendium DO Not Attach Compendium, Do Not Delete/merge, [id number] 11/03/2015 12:24:02 11/03/19 16 11/03/2015 urina lysis , dipst ick Appearance Clear Not Available In-Offi ce Order Internal Use Only DO Not Attach Compendium DO Not Attach Compendium, Do Not Delete/merge, [id number] 11/03/2015 12:24:02 11/03/19 16 11/03/2015 urina lysis , dipst ick Color Yellow Not Available In-Office Order Internal Use Only DO Not Attach Compendium DO Not Attach Compendium, Do Not Delete/merge, [id number] 11/03/2015 12:24:02 11/03/19 16 11/05/2015 cultu re, urine urine culture, routine FINAL REPORT abnormal Not Available [facility] ([facility]) [address] [facility] [facility] [facility], [place], [address], 11/05/2015 16:12:13 11/03/19 16 11/05/2015 cultu re, urine result 1 COMMEN T abnormal ESCHE SWEETIE A COLI, IDENT IFIED BY AN AUTOM ATED BIOCH EMICA L SYSTE M. GREAT ER THAN 100,0 00 COLON Y FORMI NG UNITS PER ML Not Available [facility] ([facility]) [address], [place], [address], 11/05/2015 16:12:13 11/03/19 16 11/05/2015 cultu re, urine antimicrobia l susceptibili ty COMMEN T S = SUSCE PTIBL E; I = INTER MEDIA TE; R = RESIS TANT P = POSIT VIOLA; N = NEGAT VIOLA MICS ARE EXPRE SSED IN MICRO GRAMS PER ML ANTIB IOTIC RSLT# 1 RSLT# 2 RSLT# 3 RSLT# 4 AMOXI CILLI N/CLA VULAN IC ACID S AMPIC ILLIN S CEFEP WILMER S CEFTR IAXON E S CEFUR OXIME S CEPHA LOTHI N I CIPRO FLOXA YOSELIN S ERTAP ENEM S GENTA MICIN S IMIPE NEM S LEVOF LOXAC IN S NITRO FURAN TOIN S PIPER ACILL IN S TETRA CYCLI NE S TOBRA MYCIN S TRIME THOPR IM/CALDWELL LFA S Not Available [facility] ([facility]) [address] [place], [address], 11/05/2015 16:12:13 12/01/19 16 12/03/2015 bacte rial vagin osis + vagin itis panel , vagin al trich vag by ALTHEA NEGATI VE negati ve Not Available [facility] ([facility]) [address] [place], [address], 12/05/2015 06:04:43 12/01/19 16 12/04/2015 bacte rial vagin osis + vagin itis panel , vagin al chlamydia trachomatis, ALTHEA NEGATI VE negati ve Not Available [facility] ([facility]) [address] [place] [address], [address], 12/05/2015 06:04:43 12/01/19 16 12/04/2015 bacte rial vagin osis + vagin itis panel , vagin al neisseria gonorrhoeae, ALTHEA NEGATI VE negati ve Not Available [facility] ([facility]) [address] [place], [address], 12/05/2015 06:04:43 12/01/19 16 12/05/2015 bacte rial vagin osis + vagin itis panel , vagin al atopobium vaginae LOW - 0 score Not Available [facility] ([facility]) [address] [place], [address], 12/05/2015 06:04:43 12/01/19 16 12/05/2015 bacte rial vagin osis + vagin itis panel , vagin al bvab 2 LOW - 0 score Not Available [facility] ([facility]) [address] [place], [address], 12/05/2015 06:04:43 12/01/19 16 12/05/2015 bacte rial vagin osis + vagin itis panel , vagin al megasphaera 1 LOW - 0 score CALCU LATE TOTAL SCORE BY WES Ghosh THE 3 INDIV IDUAL BACTE RIAL VAGIN OSIS (BV) MARKE R SCORE S TOGET HER. TOTAL SCORE IS INTER PRETE D FOLLO WS: TOTAL SCORE 0-1: INDIC ATES THE ABSEN CE OF BV. TOTAL SCORE 2: INDET ERMIN ATE FOR BV. ADDIT IONAL CLINI SALOME DATA SHOUL D BE EVALU ATED TO ESTAB SAVANNAH A DIAGN OSIS. TOTAL SCORE 3-6: INDIC ATES THE PRESE NCE OF BV. THIS TEST WAS DEVEL OPED AND ITS PERFO RMANC E LUCIA CTERI STICS DETER MINED BY [employer]. IT HAS NOT BEEN CLEAR ED OR APPRO KLEVER BY THE FOOD AND DRUG ADMIN ISTRA TION. THE FDA HAS DETER MINED THAT SUCH CLEAR ANCE OR APPRO SKIP IS NOT NECES ESTELLE. Not Available [facility] ([facility]) [address], [place], [address], 12/05/2015 06:04:43 12/01/19 16 12/05/2015 bacte rial vagin osis + vagin itis panel , vagin al laurie albicans, ALTHEA NEGATI VE negati ve Not Available [facility] ([facility]) [address] [place], [address], 12/05/2015 06:04:43 12/01/19 16 12/05/2015 bacte rial vagin osis + vagin itis panel , vagin al laurie glabrata, ALTHEA NEGATI VE negati ve THIS TEST WAS DEVEL OPED AND ITS PERFO RMANC E LUCIA CTERI STICS DETER MINED BY Hers RP. IT HAS NOT BEEN CLEAR ED OR APPRO KLEVER BY THE FOOD AND DRUG ADMIN ISTRA TION. THE FDA HAS DETER MINED THAT SUCH CLEAR ANCE OR APPRO SKIP IS NOT NECES ESTELLE. Not Available [facility] ([facility]) [address], [place], [address], 12/05/2015 06:04:43 12/01/19 16 12/03/2015 HSV (1+2) DNA, qual, PCR, unspe cifie d speci men hsv 1 ALTHEA NEGATI VE negati ve Not Available [facility] ([facility]) [address] [place], [address], 12/05/2015 06:04:43 12/01/19 16 12/03/2015 HSV (1+2) DNA, qual, PCR, unspe cifie d speci men hsv 2 ALTHEA NEGATI VE negati ve Not Available [facility] ([facility]) [address], [place], [address], 12/05/2015 06:04:43 12/01/19 16 12/03/2015 cultu re, vagin al/re ctal, strep tococ cus group B strep gp B ALTHEA NEGATI VE negati ve CENTE RS FOR DISEA SE CONTR OL AND PREVE NTION (CDC) AND AMERI CAN CONGR ESS OF OBSTE TRICI ANS AND GYNEC OLOGI STS (ACOG ) GUIDE LINES FOR PREVE NTION OF PERIN ATAL GROUP B STREP TOCOC SALOME (GBS) DISEA SE SPECI FY CO-CO LLECT ION OF A VAGIN AL AND RECTA L SWAB SPECI MEN TO MAXIM IZE SENSI TIVIT Y OF GBS DETEC TION. PER THE CDC AND ACOG, SWABB ING BOTH THE LOWER VAGIN A AND RECTU M SUBST ANTIA LLY INCRE ASES THE YIELD OF DETEC TION JESSICA RED WITH SAMPL ING THE VAGIN A ALONE . PENIC ILLIN G, AMPIC ILLIN , OR CEFAZ ERIKA ARE INDIC ATED FOR INTRA PARTU M PROPH YLAXI S OF PERIN ATAL GBS COLON IZATI ON. REFLE X SUSCE PTIBI LITY TESTI NG SHOUL D BE PERFO RMED PRIOR TO USE OF CLIND AMYCI N ONLY ON GBS ISOLA BJ FROM PENIC ILLIN -ELIOT RGIC WOMEN WHO ARE CONSI DERED A HIGH RISK FOR ANAPH YLAXI S. TREAT MENT WITH VANCO MYCIN WITHO UT ADDIT IONAL TESTI NG IS LUIS NTED IF RESIS TANCE TO CLIND HANNAH Cooper IS NOTED . Not Available [facility] ([facility]) [address] [place], [address], 12/05/2015 06:04:44 12/01/19 16 12/03/2015 pap, IG + HPV, cervi salome diagnosis: JOHN ROD FOR INTRA EPITH ELIAL LESIO N AND MEGHAN LANGSTON . POST- PARTU M WONG ES ARE PRESE NT. Not Available [facility] ([facility]) [address] [place], [address], 12/06/2015 06:05:17 12/01/19 16 12/03/2015 pap, IG + HPV, cervi salome specimen adequacy: JOHN Chanel SATIS ADDI HUGGINS FOR EVALU ATION . ENDOC ERVIC AL AND/O R SQUAM OUS METAP LASTI C CELLS (ENDO CERVI SALOME COMPO NENT) ARE PRESE NT. Not Available [facility] ([facility]) [address] [place], [address], 12/06/2015 06:05:17 12/01/19 16 12/03/2015 pap, IG + HPV, cervi salome clinician provided ICD10: JOHN Chanel Z39.2 Not Available [facility] ([facility]) [address] [place], [address], 12/06/2015 06:05:17 12/01/19 16 12/03/2015 pap, IG + HPV, cervi salome performed by: JOHN CHENG TH, CYTOT TINO Chanel (ASCP ) Not Available [facility] ([facility]) [address] [place], [address], 12/06/2015 06:05:17 12/01/19 16 12/03/2015 pap, IG + HPV, cervi salome . . Not Available [facility] ([facility]) [address] [place], [address], 12/06/2015 06:05:17 12/01/19 16 12/03/2015 pap, IG + HPV, cervi salome note: COMMEN T THE PAP SMEAR IS A SCREE JARON TEST DESIG MARIA ANTONIA TO AID IN THE DETEC TION OF TABITHA LIGNA NT AND MALIG NANT CONDI TIONS OF THE UTERI NE CERVI X. IT IS NOT A DIAGN OSTIC PROCE DURE AND SHOUL D NOT BE USED THE SOLE MEANS OF DETEC TING CERVI SALOME CANCE R. BOTH FALSE -POSI TIVE AND FALSE -NEGA TIVE REPOR TS DO OCCUR . Not Available [facility] ([facility]) [address] [place], [address], 12/06/2015 06:05:17 12/01/19 16 12/03/2015 pap, IG + HPV, cervi salome test methodology: COMMEN T THIS LIQUI D BASED THINP REP(R ) PAP TEST WAS SCREE MARIA ANTONIA WITH THE USE OF AN IMAGE GUIDE Grey Richter. Not Available [facility] ([facility]) [address] [place], [address], 12/06/2015 06:05:17 12/01/19 16 12/05/2015 pap, IG + HPV, cervi salome HPV aptima NEGATI VE negati ve THIS TEST DETEC TS FOURT EEN HIGH- RISK HPV TYPES (16/1 8/31/ 33/35 /39/4 5/ 51/52 /56/5 8/59/ 66/68 ) WITHO UT DIFFE RENTI ATION . Not Available [facility] ([facility]) [address] [place], [address], 12/06/2015 06:05:17 01/24/20 17 01/24/2017 CBC w/ auto diff WBC 4.9 x10e3 /uL 3.4-10 .8 Not Available [facility] ([facility]) [address] [place], [address], 01/24/2017 06:08:16 01/24/20 17 01/24/2017 CBC w/ auto diff RBC 4.10 x10e6 /uL 3.77-5 .28 Not Available [facility] ([facility]) [address] [place], [address], 01/24/2017 06:08:16 01/24/20 17 01/24/2017 CBC w/ auto diff hemoglobin 11.2 g/dL 11.1-1 5.9 Not Available [facility] ([facility]) [address] [place], [address], 01/24/2017 06:08:16 01/24/20 17 01/24/2017 CBC w/ auto diff hematocrit 35.6 % 34.0-4 6.6 Not Available [facility] ([facility]) [address] [place], [address], 01/24/2017 06:08:16 01/24/20 17 01/24/2017 CBC w/ auto diff MCV 87 fL 79-97 Not Available [facility] ([facility]) [address] [place], [address], 01/24/2017 06:08:16 01/24/20 17 01/24/2017 CBC w/ auto diff MCH 27.3 pg 26.6-3 3.0 Not Available [facility] ([facility]) [address] [place], [address], 01/24/2017 06:08:16 01/24/20 17 01/24/2017 CBC w/ auto diff MCHC 31.5 g/dL 31.5-3 5.7 Not Available [facility] ([facility]) [address] [place], [address], 01/24/2017 06:08:16 01/24/20 17 01/24/2017 CBC w/ auto diff RDW 14.1 % 12.3-1 5.4 Not Available [facility] ([facility]) [address] [facility], [place], [address], 01/24/2017 06:08:16 01/24/20 17 01/24/2017 CBC w/ auto diff platelets 229 x10e3 /uL 150-37 9 Not Available [facility] ([facility]) [address] [facility] [facility] [facility], [place], [address], 01/24/2017 06:08:16 01/24/20 17 01/24/2017 CBC w/ auto diff neutrophils 54 % Not Available [facility] ([facility]) [address] [facility] [facility] [facility], [place], [address], 01/24/2017 06:08:16 01/24/20 17 01/24/2017 CBC w/ auto diff lymphs 34 % Not Available [facility] ([facility]) [address] [place], [address], 01/24/2017 06:08:16 01/24/20 17 01/24/2017 CBC w/ auto diff monocytes 6 % Not Available [facility] ([facility]) [address] [place], [address], 01/24/2017 06:08:16 01/24/20 17 01/24/2017 CBC w/ auto diff eos 5 % Not Available [facility] ([facility]) [address] [place], [address], 01/24/2017 06:08:16 01/24/20 17 01/24/2017 CBC w/ auto diff basos 1 % Not Available [facility] ([facility]) [address] [place], [address], 01/24/2017 06:08:16 01/24/20 17 01/24/2017 CBC w/ auto diff immature cells DISPENSING LEAD Not Available [facility] ([facility]) [address] [facility], [place], [address], 01/24/2017 06:08:16 01/24/20 17 01/24/2017 CBC w/ auto diff neutrophils (absolute) 2.7 x10e3 /uL 1.4-7. 0 Not Available [facility] ([facility]) [address] [place], [address], 01/24/2017 06:08:16 01/24/20 17 01/24/2017 CBC w/ auto diff lymphs (absolute) 1.6 x10e3 /uL 0.7-3. 1 Not Available [facility] ([facility]) [address] [place], [address], 01/24/2017 06:08:16 01/24/20 17 01/24/2017 CBC w/ auto diff monocytes(ab solute) 0.3 x10e3 /uL 0.1-0. 9 Not Available [facility] ([facility]) [address] [place], [address], 01/24/2017 06:08:16 01/24/20 17 01/24/2017 CBC w/ auto diff eos (absolute) 0.2 x10e3 /uL 0.0-0. 4 Not Available [facility] ([facility]) [address] [place], [address], 01/24/2017 06:08:16 01/24/20 17 01/24/2017 CBC w/ auto diff baso (absolute) 0.1 x10e3 /uL 0.0-0. 2 Not Available [facility] ([facility]) [address] [place], [address], 01/24/2017 06:08:16 01/24/20 17 01/24/2017 CBC w/ auto diff immature granulocytes 0 % Not Available [facility] ([facility]) [address] [place], [address], 01/24/2017 06:08:16 01/24/20 17 01/24/2017 CBC w/ auto diff immature grans (abs) 0.0 x10e3 /uL 0.0-0. 1 Not Available [facility] ([facility]) [address] [place], [address], 01/24/2017 06:08:16 01/24/2001/24/2017 CBC w/ auto diff NRBC DISPENSING LEAD Not Available [facility] ([facility]) [address] [place], [address], 01/24/2017 06:08:16 01/24/2001/24/2017 CBC w/ auto diff hematology comments: DISPENSING LEAD Not Available [facility] ([facility]) [address] [place], [address], 01/24/2017 06:08:16 01/24/2001/24/2017 CMP, serum or plasm a glucose, serum 83 mg/dL 65-99 Not Available [facility] ([facility]) [address] [place], [address], 01/24/2017 06:08:17 01/24/2001/24/2017 CMP, serum or plasm a BUN 10 mg/dL 6-20 Not Available [facility] ([facility]) [address] [place], [address], 01/24/2017 06:08:17 01/24/2001/24/2017 CMP, serum or plasm a creatinine, serum 0.60 mg/dL 0.57-1 .00 Not Available [facility] ([facility]) [address] [place], [address], 01/24/2017 06:08:17 01/24/2001/24/2017 CMP, serum or plasm a eGFR if nonafricn AM 123 mL/mi n/1.7 3 >59 Not Available [facility] ([facility]) [address] [place], [address], 01/24/2017 06:08:17 01/24/2001/24/2017 CMP, serum or plasm a eGFR if africn AM 141 mL/mi n/1.7 3 >59 Not Available [facility] ([facility]) [address] [place], [address], 01/24/2017 06:08:17 01/24/2001/24/2017 CMP, serum or plasm a BUN/creatini ne ratio 17 9-23 Not Available [facility] ([facility]) [address] [place], [address], 01/24/2017 06:08:17 01/24/2001/24/2017 CMP, serum or plasm a sodium, serum 140 mmol/ L 134-14 4 Not Available [facility] ([facility]) [address] [place], [address], 01/24/2017 06:08:17 01/24/2001/24/2017 CMP, serum or plasm a potassium, serum 4.3 mmol/ L 3.5-5. 2 Not Available [facility] ([facility]) [address] [place], [address], 01/24/2017 06:08:17 01/24/2001/24/2017 CMP, serum or plasm a chloride, serum 102 mmol/ L 96-106 Not Available [facility] ([facility]) [address] [place], [address], 01/24/2017 06:08:17 01/24/2001/24/2017 CMP, serum or plasm a carbon dioxide, total 24 mmol/ L 18-29 Not Available [facility] ([facility]) [address] [place], [address], 01/24/2017 06:08:17 01/24/2001/24/2017 CMP, serum or plasm a calcium, serum 9.0 mg/dL 8.7-10 .2 Not Available [facility] ([place] [facility]) [address] [place], [address], 01/24/2017 06:08:17 01/24/20 17 01/24/2017 CMP, serum or plasm a protein, total, serum 6.4 g/dL 6.0-8. 5 Not Available [facility] ([facility]) [address] [place], [address], 01/24/2017 06:08:17 01/24/2001/24/2017 CMP, serum or plasm a albumin, serum 4.0 g/dL 3.5-5. 5 Not Available [facility] ([facility]) [address] [place], [address], 01/24/2017 06:08:17 01/24/2001/24/2017 CMP, serum or plasm a globulin, total 2.4 g/dL 1.5-4. 5 Not Available [facility] ([facility]) [address] [place], [address], 01/24/2017 06:08:17 01/24/2001/24/2017 CMP, serum or plasm a A/G ratio 1.7 1.2-2. 2 Not Available [facility] ([facility]) [address] [place], [address], 01/24/2017 06:08:17 01/24/2001/24/2017 CMP, serum or plasm a bilirubin, total 0.4 mg/dL 0.0-1. 2 Not Available [facility] ([facility]) [address] [place], [address], 01/24/2017 06:08:17 01/24/2001/24/2017 CMP, serum or plasm a alkaline phosphatase, S 89 IU/L 39-117 Not Available [facility] ([facility]) [address] [place], [address], 01/24/2017 06:08:17 01/24/2001/24/2017 CMP, serum or plasm a AST (SGOT) 18 IU/L 0-40 Not Available [facility] ([facility]) [address] [facility], [place], [address], 01/24/2017 06:08:17 01/24/20 17 01/24/2017 CMP, serum or plasm a ALT (SGPT) 19 IU/L 0-32 Not Available [facility] ([facility]) [address] [facility], [place], [address], 01/24/2017 06:08:17 01/24/20 17 01/24/2017 lipid panel , serum cholesterol, total 101 mg/dL 100-19 9 Not Available [facility] ([facility]) [address] [facility], [place], [address], 01/24/2017 06:08:17 01/24/20 17 01/24/2017 lipid panel , serum triglyceride s 74 mg/dL 0-149 Not Available [facility] ([facility]) [address] [facility], [place], [address], 01/24/2017 06:08:17 01/24/20 17 01/24/2017 lipid panel , serum HDL cholesterol 49 mg/dL >39 Not Available [facility] ([facility]) [address] [facility], [place], [address], 01/24/2017 06:08:17 01/24/20 17 01/24/2017 lipid panel , serum VLDL cholesterol salome 15 mg/dL 5-40 Not Available [facility] ([facility]) [address] [facility], [place], [address], 01/24/2017 06:08:17 01/24/2001/24/2017 lipid panel , serum LDL cholesterol calc 37 mg/dL 0-99 Not Available [facility] ([facility]) [address] [facility], [place], [address], 01/24/2017 06:08:17 01/24/20 17 01/24/2017 lipid panel , serum comment: DISPENSING LEAD Not Available [facility] ([facility]) [address] [facility], [place], [address], 01/24/2017 06:08:17 01/24/20 17 01/24/2017 iron + total iron- adam ng capac ity (TIBC ), serum iron bind.cap.(TI BC) 345 ug/dL 250-45 0 Not Available [facility] ([facility]) [address] [place], [address], 01/24/2017 06:08:18 01/24/20 17 01/24/2017 iron + total iron- adam ng capac ity (TIBC ), serum UIBC 264 ug/dL 131-42 5 Not Available [facility] ([facility]) [address] [place], [address], 01/24/2017 06:08:18 01/24/20 17 01/24/2017 iron + total iron- adam ng capac ity (TIBC ), serum iron, serum 81 ug/dL 27-159 Not Available [facility] ([facility]) [address] [place], [address], 01/24/2017 06:08:18 01/24/2001/24/2017 iron + total iron- adam ng capac ity (TIBC ), serum iron saturation 23 % 15-55 Not Available [facility] ([facility]) [address] [place], [address], 01/24/2017 06:08:18 01/24/2001/24/2017 HbA1c (hemo globi n A1c), blood hemoglobin A1C 5.3 % 4.8-5. 6 PRE-D IABET ES: 5.7 - 6.4 DIABE BJ: >6.4 GLYCE PEARL CONTR OL FOR ADULT S WITH DIABE BJ: <7.0 Not Available [facility] ([facility]) [address] [place], [address], 01/24/2017 06:08:18 01/24/20 17 01/24/2017 TSH, ultra -sens itive , serum TSH 1.380 uIU/m L 0.450- 4.500 Not Available [facility] ([facility]) [address] [place], [address], 01/24/2017 06:08:19 01/24/20 17 01/24/2017 nick tin, serum or plasm a ferritin, serum 9 NG/mL 15-150 below low normal Not Available [facility] ([facility]) [address] [place], [address], 01/24/2017 06:08:20 01/24/20 17 01/25/2017 bacte rial vagin osis + vagin itis panel , vagin al atopobium vaginae LOW - 0 score Not Available [facility] ([facility]) [address] [place] [address], [address], 01/27/2017 06:04:45 01/24/20 17 01/25/2017 bacte rial vagin osis + vagin itis panel , vagin al bvab 2 LOW - 0 score Not Available [facility] ([facility]) [address] [place] [address], [address], 01/27/2017 06:04:45 01/24/20 17 01/25/2017 bacte rial vagin osis + vagin itis panel , vagin al megasphaera 1 LOW - 0 score CALCU LATE TOTAL SCORE BY WES Ghosh THE 3 INDIV IDUAL BACTE RIAL VAGIN OSIS (BV) MARKE R SCORE S TOGET HER. TOTAL SCORE IS INTER PRETE D FOLLO WS: TOTAL SCORE 0-1: INDIC ATES THE ABSEN CE OF BV. TOTAL SCORE 2: INDET ERMIN ATE FOR BV. ADDIT IONAL CLINI SALOME DATA SHOUL D BE EVALU ATED TO ESTAB SAVANNAH A DIAGN OSIS. TOTAL SCORE 3-6: INDIC ATES THE PRESE NCE OF BV. THIS TEST WAS DEVEL OPED AND ITS PERFO RMANC E LUCIA CTERI STICS DETER MINED BY [facility]. IT HAS NOT BEEN CLEAR ED OR APPRO KLEVER BY THE FOOD AND DRUG ADMIN ISTRA TION. THE FDA HAS DETER MINED THAT SUCH CLEAR ANCE OR APPRO SKIP IS NOT NECES ESTELLE. Not Available [facility] ([facility]) [address] [place], [address], 01/27/2017 06:04:45 01/24/20 17 01/25/2017 bacte rial vagin osis + vagin itis panel , vagin al laurie albicans, ALTHEA NEGATI VE negati ve Not Available [facility] ([facility]) [address] [place], [address], 01/27/2017 06:04:45 01/24/2001/25/2017 bacte rial vagin osis + vagin itis panel , vagin al laurie glabrata, ALTHEA NEGATI VE negati ve THIS TEST WAS STEVAN ORELLANA AND ITS PERFO RMANC E LUCIA CTERI STICS DETER MINED BY Hers RP. IT HAS NOT BEEN CLEAR ED OR APPRO KLEVER BY THE FOOD AND DRUG ADMIN ISTRA TION. THE FDA HAS DETER MINED THAT SUCH CLEAR ANCE OR APPRO SKIP IS NOT NECES ESTELLE. Not Available [facility] ([facility]) [address] [facility], [place], [address], 01/27/2017 06:04:45 01/24/2001/26/2017 bacte rial vagin osis + vagin itis panel , vagin al trich vag by ALTHEA NEGATI VE negati ve Not Available [facility] ([facility]) [address] [place], [address], 01/27/2017 06:04:45 01/24/2001/26/2017 bacte rial vagin osis + vagin itis panel , vagin al chlamydia trachomatis, ALTHEA NEGATI VE negati ve Not Available [facility] ([facility]) [address] [place], [address], 01/27/2017 06:04:45 01/24/2001/2601/26/2017 bacte rial vagin osis + vagin itis panel , vagin al neisseria gonorrhoeae, ALTHEA NEGATI VE negati ve Not Available [facility] ([facility]) [address] [facility], [place], [address], 01/27/2017 06:04:45 01/24/20 17 01/27/2017 HSV (1+2) DNA, qual, PCR, unspe cifie d speci men hsv 1 ALTHEA NEGATI VE negati ve Not Available [facility] ([facility]) [address] [place], [address], 01/27/2017 06:04:45 01/24/20 17 01/27/2017 HSV (1+2) DNA, qual, PCR, unspe cifie d speci men hsv 2 ALTHEA NEGATI VE negati ve Not Available [facility] ([facility]) [address] [facility], [place], [address], 01/27/2017 06:04:45 01/24/20 17 01/25/2017 cultu re, vagin al/re ctal, strep tococ cus group B strep gp B ALTHEA NEGATI VE negati ve CENTE RS FOR DISEA SE CONTR OL AND PREVE NTION (CDC) AND AMERI CAN CONGR ESS OF OBSTE TRICI ANS AND GYNEC OLOGI STS (ACOG ) GUIDE LINES FOR PREVE NTION OF PERIN ATAL GROUP B STREP TOCOC SALOME (GBS) DISEA SE SPECI FY CO-CO LLECT ION OF A VAGIN AL AND RECTA L SWAB SPECI MEN TO MAXIM IZE SENSI TIVIT Y OF GBS DETEC TION. PER THE CDC AND ACOG, SWABB ING BOTH THE LOWER VAGIN A AND RECTU M SUBST ANTIA LLY INCRE ASES THE YIELD OF DETEC TION JESSICA RED WITH SAMPL ING THE VAGIN A ALONE . PENIC ILLIN G, AMPIC ILLIN , OR CEFAZ ERIKA ARE INDIC ATED FOR INTRA PARTU M PROPH YLAXI S OF PERIN ATAL GBS COLON IZATI ON. REFLE X SUSCE PTIBI LITY TESTI NG SHOUL D BE PERFO RMED PRIOR TO USE OF CLIND AMYCI N ONLY ON GBS ISOLA BJ FROM PENIC ILLIN -ELIOT RGIC WOMEN WHO ARE CONSI DERED A HIGH RISK FOR ANAPH YLAXI S. TREAT MENT WITH VANCO MYCIN WITHO UT ADDIT IONAL TESTI NG IS WARRA NTED IF RESIS TANCE TO CLIND AMYCI N IS NOTED . Not Available [facility] ([facility]) [address] [facility], [place], [address], 01/27/2017 06:04:46 01/24/2001/28/2017 pap, IG + HPV, cervi salome HPV aptima NEGATI VE negati ve THIS TEST DETEC TS FOURT EEN HIGH- RISK HPV TYPES (16/1 8/31/ 33/35 /39/4 5/ 51/52 /56/5 8/59/ 66/68 ) WITHO UT DIFFE RENTI ATION . Not Available [facility] ([facility]) [address] [facility], [place], [address], 01/29/2017 20:09:22 01/24/2001/29/2017 pap, IG + HPV, cervi salome diagnosis: COMMEN T NEGAT VIOLA FOR INTRA EPITH ELIAL LESIO N AND MALIG IVIS . SPECI MEN REPRO CESSE D FOR INTER PRETA TION USING GLACI AL ACETI C ACID (GAA) . Not Available [facility] ([facility]) [address] [facility], [place], [address], 01/29/2017 20:09:22 01/24/2001/29/2017 pap, IG + HPV, cervi salome specimen adequacy: COMMEN T SATIS FACTO RY FOR EVALU ATION . NO ENDOC ERVIC AL COMPO NENT IS IDENT IFIED . PARTI ALLY OBSCU RING THICK AREAS ARE PRESE NT. Not Available [facility] ([facility]) [address] [facility], [place], [address], 01/29/2017 20:09:22 01/24/20 17 01/29/2017 pap, IG + HPV, cervi salome clinician provided ICD10: COMMKARUNA T Z01.4 19 Not Available [facility] ([facility]) [address] [facility], [place], [address], 01/29/2017 20:09:22 01/24/20 17 01/29/2017 pap, IG + HPV, cervi salome performed by: JOHN TENORIO, CYTOKaty Chanel (ASCP ) Not Available [facility] ([facility]) [address] [facility], [place], [address], 01/29/2017 20:09:22 01/24/20 17 01/29/2017 pap, IG + HPV, cervi salome . . Not Available [facility] ([facility]) [address] [facility], [place], [address], 01/29/2017 20:09:22 01/24/20 17 01/29/2017 pap, IG + HPV, cervi salome note: JOHN Chanel THE PAP SMEAR IS A SCREE JARON TEST DESIG MARIA ANTONIA TO AID IN THE DETEC TION OF TABTIHA LIGNA NT AND MALIG NANT CONDI TIONS OF THE UTERI NE CERVI X. IT IS NOT A DIAGN OSTIC PROCE DURE AND SHOUL D NOT BE USED THE SOLE MEANS OF DETEC TING CERVI SALOME CANCE R. BOTH FALSE -POSI TIVE AND FALSE -NEGA TIVE REPOR TS DO OCCUR . Not Available [facility] ([facility]) [address] [facility], [place], [address], 01/29/2017 20:09:22 01/24/20 17 01/29/2017 pap, IG + HPV, cervi salome test methodology: TNP THE THIN PREP( R) IMAGE R WAS UNABL E TO READ THIS SPECI MEN. THERE FORE A MANUA L REVIE W WAS PERFO RMED. Not Available [facility] ([facility]) [address] [facility], [place], [address], 01/29/2017 20:09:22 09/28/19 20 09/29/2019 urina lysis compl ete, refle x cultu re specific gravity 1.025 1.005- 1.030 Not Available [facility] ([facility]) [address] [place], [address], 09/29/2019 07:08:11 09/28/1909/29/2019 urina lysis compl ete, refle x cultu re pH 5.5 5.0-7. 5 Not Available [facility] ([facility]) [address] [place], [address], 09/29/2019 07:08:11 09/28/19 20 09/29/2019 urina lysis compl ete, refle x cultu re urine-color YELLOW yellow Not Available [facility] ([facility]) [address] [place], [address], 09/29/2019 07:08:11 09/28/1909/29/2019 urina lysis compl ete, refle x cultu re appearance CLEAR clear Not Available [facility] ([facility]) [address] [place], [address], 09/29/2019 07:08:11 09/28/1909/29/2019 urina lysis compl ete, refle x cultu re WBC esterase NEGATI VE negati ve Not Available [facility] ([facility]) [address] [place], [address], 09/29/2019 07:08:11 09/28/1909/29/2019 urina lysis compl ete, refle x cultu re protein TRACE negati ve/tra ce Not Available [facility] ([facility]) [address] [place], [address], 09/29/2019 07:08:11 09/28/1909/29/2019 urina lysis compl ete, refle x cultu re glucose NEGATI VE negati ve Not Available [facility] ([facility]) [address] [place], [address], 09/29/2019 07:08:11 09/28/19 20 09/29/2019 urina lysis compl ete, refle x cultu re ketones TRACE negati ve abnormal Not Available [facility] ([facility]) [address] [place], [address], 09/29/2019 07:08:11 09/28/19 20 09/29/2019 urina lysis compl ete, refle x cultu re occult blood NEGATI VE negati ve Not Available [facility] ([facility]) [address] [place], [address], 09/29/2019 07:08:11 09/28/1909/29/2019 urina lysis compl ete, refle x cultu re bilirubin NEGATI VE negati ve Not Available [facility] ([facility]) [address] [place], [address], 09/29/2019 07:08:11 09/28/1909/29/2019 urina lysis compl ete, refle x cultu re urobilinogen ,semi-qn 0.2 mg/dL 0.2-1. 0 Not Available [facility] ([facility]) [address] [place], [address], 09/29/2019 07:08:11 09/28/1909/29/2019 urina lysis compl ete, refle x cultu re nitrite, urine NEGATI VE negati ve Not Available [facility] ([facility]) [address] [place], [address], 09/29/2019 07:08:11 09/28/1909/29/2019 urina lysis compl ete, refle x cultu re microscopic examination COMMEN T Micro scopi c not indic ated and not perfo rmed. Not Available [facility] ([facility]) [address] [place], [address], 09/29/2019 07:08:11 09/28/19 20 09/29/2019 urina lysis compl ete, refle x cultu re urinalysis reflex COMMEN T This speci men will not refle x to a Urine Cultu re. Not Available [facility] ([facility]) [address] [facility], [place], [address], 09/29/2019 07:08:11 08/04/1908/04/2020 pap, IG + HR HPV HPV negati ve Not Available Not Available 15:45:16 Result Notes None recorded. Problems Name Problem SNOMED Code Status Onset Date Resolution Date Notes Provider Name and Address Organization Details Recorded Time Abdominal pain 36320392 Active [place], [place] [facility] 11:58:46 Acute urinary tract infection 982439898 Active Twila [place] [facility] 12:29:50 Acute urinary tract infection 123212250 Completed Tw[place] [facility] 12:29:50 Deliverie s by 063495648 Active [place] [facility] 12:29:50 Deliverie s by Completed Tw[place] [facility] 12:29:49 Irritable bowel syndrome 07196236 Active [place] [facility] 12:29:50 Irritable bowel syndrome 35117664 Completed [place] [facility] 12:29:50 Abnormal progester one 786816013 Active Twila [place] [facility] 6 12:29:49 Abnormal progester one 349110743 Completed Twila [place] [facility] 6 12:29:49 Varicella 22288203 Active Twila [place] [facility] 6 12:29:49 Varicella 82451301 Completed Twila [place] [facility] 6 12:29:49 Urinary tract infectiou s disease 41804325 Active Twila [place] [facility] 6 12:29:49 Urinary tract infectiou s disease 35022500 Completed [place] [facility] 6 12:29:49 Subchorio merry hematoma 898940929 Active Twila [place] [facility] 6 12:29:50 Subchorio merry hematoma 533571817 Completed [place] [facility] 6 12:29:50 Gastroeso phageal reflux disease 657171286 Active Twila [place] [facility] 6 12:29:50 Gastroeso phageal reflux disease 551582438 Completed Twila [place] [facility] 6 12:29:50 Past history of gestation al diabetes mellitus 434774292 Active 2023 SHANTEL El Attn: Oren ghosh,[address] [place], [address], [place] - [facility] 5 12:32:23 Body mass index 25-29 - overweigh t 057361827 Active 2023 SHANTEL El Attn: Oren ghosh,[address] [place], [address], [place] [facility] 4 10:29:11 Positive screening for depressio n on PHQ-9 (Patient Health Questionn air 9) 599621153580 100 Active 2023 SHANTEL El Attn: Oren g,[address] [place], [address], [place] - [facility] 5 12:34:00 Allergic dispositi on 744125201 Active 2024 SHANTEL El Attn: Oren g,[address] [place], [address], [place] [facility] 5 09:55:34 Near syncope 932242798 Active 2024 SHANTEL El Attn: Oren ghosh,[address] [place], [address], [facility] - [facility] 5 09:59:08 Anemia 693596252 Active 2024 SHANTEL El Attn: Oren ghosh,[address] [facility], [place], [address], [facility] - [facility] 5 12:32:21 Chronic low back pain 049526706 Active 2024 SHANTEL El Attn: Oren ghosh,[address] [facility], [place], [address], [facility] - [facility] 5 12:33:39 Problem Notes None recorded. Procedures Surgical History Date Name Laterality Status Provider Name and Address Organization Details Recorded Time 01/24/20 17 Date of Last Pap Smear completed Georgia Singletary MA [facility] 01/23/2017 10:35:05 10/21/19 16 Tubal Ligation completed Radha Espinal MA [facility] 10/28/2015 11:47:49 06/24/19 14 [facility] 16:52:13 01/02/20 12 Caesarean Section completed Georgia Singletary MA [facility] 09/21/2015 10:14:19 06/24/19 01 Cholecystectomy completed Gonzalez Stanislav [facility] 09/21/2014 16:22:00 Imaging Results None recorded. Procedure Notes None recorded. Medical Equipment None Reported. Allergies No known drug allergies Medications Name Sig Start Date Stop Date Status Note LastModified by Organization Details LastModified Time multivitami n tablet Take 1 tablet every day by oral route. 09/28 completed Not Available Not Available Not Available cyclobenzap rine 10 mg tablet TAKE 1 TABLET BY MOUTH NEEDED active Not Available Not Available No t Available azithromyci n 250 mg tablet TAKE 2 TABLETS BY MOUTH FOR 1 DAY THEN TAKE 1 TABLET BY MOUTH EVERY DAY FOR 4 DAYS 02/26 completed Not Available Not Available Not Available ibuprofen 800 mg tablet 09/28 completed Not Available Not Available Not Available ranitidine 300 mg tablet Take 1 tablet every day by oral route. active Not Available Not Available No t Available acetaminoph en 300 mg-codeine 30 mg tablet active Not Available Not Available Not Available ciprofloxac in 500 mg tablet Take 1 tablet every 12 hours by oral route. 09/28 completed Not Available Not Available Not Available Vitamin tablet Take 1 tablet every day by oral route as directed for 90 days. 09/28 completed Not Available Not Available Not Available amoxicillin 875 mg tablet active Not Available Not Available Not Available citalopram 20 mg tablet 09/28 completed Not Available Not Available Not Available cephalexin 500 mg capsule Take 1 capsule every 12 hours by oral route for 10 days. active Not Available Not Available No t Available progesteron e micronized 200 mg capsule Take 1 capsule twice a day by oral route. 09/28 completed Not Available Not Available Not Available fluoxetine 10 mg capsule 09/28 completed Not Available Not Available Not Available Pepcid 20 mg tablet Take 1 tablet twice a day by oral route. 2015 active Not Available Not Available Not Avai lable ondansetron 4 mg disintegrat ing tablet active Not Available Not Available N ot Available amoxicillin 875 mg-potassiu m clavulanate 125 mg tablet Take 1 tablet every 12 hours by oral route for 10 days. active Not Available Not Available No t Available ferrous sulfate 134 mg (27 mg iron) tablet Take 1 tablet every day by oral route. 09/28 completed Not Available Not Available Not Available NuvaRing 0.12 mg-0.015 mg/24 hr vaginal Insert 1 vaginal ring every month by vaginal route for 30 days. active Not Available Not Available No t Available bupropion HCl XL 150 mg 24 hr tablet, extended release 09/28 completed Not Available Not Available Not Available hydrocodone 7.5 mg-acetamin ophen 325 mg/15 mL oral solution active Not Available Not Available Not Available nitrofurant oin monohydrate /macrocryst als 100 mg capsule Take 1 capsule every 12 hours by oral route for 10 days. active Not Available Not Available No t Available Nascobal 500 mcg/spray nasal spray active Not Available Not Available Not Available RhoGAM Ultra-Filte red PLUS 1,500 unit (300 mcg) intramuscul ar syringe 09/28 completed Not Available Not Available Not Available Calcium 600 with Vitamin D3 600 mg-10 mcg (400 unit) chewable tablet Take 1 tablet twice a day by oral route. 09/28 completed Not Available Not Available Not Available ferrous sulfate ER 140 mg (45 mg iron) tablet,exte nded release Take 1 tablet twice a day by oral route. 09/28 completed Not Available Not Available Not Available Linzess 145 mcg capsule Take 1 capsule every day by oral route. active Not Available Not Available No t Available Vitals Date Recorded Body height Body mass index (BMI) Body weight Provider Name and Address Organization Details Last Updated DateTime 09/29/2019 162.56 cm 28.3 kg/m2 85322.74 g Georgia Singletary MA [facility] 09/29/2019 16:06:29 Date Recorded Body height Body mass index (BMI) Body weight Systolic And Diastolic Provider Name and Address Organization Details Last Updated DateTime 12/01/2015 162.56 cm 30.4 kg/m2 37937.849 49 g 108/66 mm[Hg] Radha Espinal MA [facility] 12/01/2015 11:33:23 Date Recorded Body height Body mass index (BMI) Body weight Systolic And Diastolic Provider Name and Address Organization Details Last Updated DateTime 01/23/2017 162.56 cm 29.2 kg/m2 53036.7 g 98/64 mm[Hg] Georgia Singletary MA [facility] 01/23/2017 10:42:58 Date Recorded Body mass index (BMI) Body height Provider Name and Address Organization Details Last Updated DateTime 02/07/2024 26.6 kg/m2 165.1 cm SHANTEL El Attn: Accounting,[address] [place], [address], [facility] 02/07/2024 10:28:47 Date Recorded Body weight Heart rate Oxygen saturation Systolic And Diastolic Provider Name and Address Organization Details Last Updated DateTime 02/07/2024 66222.85 g 87 /min 99 % 120/66 mm[Hg] Georgia Arguelles MA [facility] 02/07/2024 10:12:35 Date Recorded Systolic And Diastolic Provider Name and Address Organization Details Last Updated DateTime 02/26/2025 120/80 mm[Hg] SHANTEL El Attn: Accounting,[address] [place], [address], [place] [facility] 02/26/2025 10:00:56 Date Recorded Body weight Body mass index (BMI) Body height Oxygen saturation Heart rate Respiratory rate Systolic And Diastolic Provider Name and Address Organization Details Last Updated DateTime 5 15607.6 g 28 kg/m2 165.1 cm 100 % 85 /min 18 /min 122/70 mm[Hg] Vivian Mahmood MA [facility] 5 09:40:04 Social History Question Answer Notes LastModified by Organizat ion Details LastModified Time Tobacco Smoking Status Former Smoker Radha Espinal MA null, [facility] 09/21/2014 15:55:22 Do You Have An Advance Directive? No [email or web address] Information not available 03/25/2015 If You Are , What Was Your Level Of Alcohol Consumption Prior To ? Occasional [email or web address] Information not available 03/25/2015 How Many Years Have You Consumed Alcohol? 10 [email or web address] Information not available 03/25/2015 Is Anesthesia Consult Planned? Yes Information not available 03/25/2015 Plan Yes [email or web address] Information no t available 03/25/2015 Are You Blind Or Do You Have Difficulty Seeing? Yes Information not available 02/26/2025 Is Blood Transfusion Acceptable In An Emergency? Yes [email or web address] Information not available 03/25/2015 What Is Your Level Of Caffeine Consumption? Heavy Information not available 03/25/2015 Live With Cats/exposure To Cat Litter No [email or web address] Information not available 03/25/2015 How Much Tobacco Do You Chew? None [email or web address] Information not available 03/25/2015 In The 14 Days Before Symptom Onset, Have You Had Close Contact With A Laboratory-confir med COVID-19 While That Case Was Ill? No Information not available 02/26/2025 In The 14 Days Before Symptom Onset, Have You Had Close Contact With A Person Who Is Under Investigation For COVID-19 While That Person Was Ill? No Information not available 02/26/2025 Have You Been To An Area Known To Be High Risk For COVID-19? No Information not available 02/26/2025 Are You Deaf Or Do You Have Serious Difficulty Hearing? No Information not available 02/26/2025 What Type Of Diet Are You Following? REGULAR [email or web address] Information not available 03/25/2015 Education 4 Year College Informatio n not available 05/04/2015 Have There Been Any Changes To Your Family Or Social Situation? Yes Information no t available 03/25/2015 Frequent Air Travel No [email or web address] Information not available 03/25/2015 Are There Any Guns Present In Your Home? No Information not available 02/26/2025 Live Alone Or With Others? With Others [email or web address] Information not available 03/25/2015 Marital Status [email or web address] Informatio n not available 03/25/2015 What Was The Date Of Your Most Recent Tobacco Screening? 02/26/2025 Information not available 02/26/2025 How Many Children Do You Have? 2 Information not available 12/01/2015 Performs Monthly Self-breast Exam? Yes Information no t available 12/01/2015 What Is Your Relationship Status? Information not available 12/01/2015 Do You Use Your Seat Belt Or Car Seat Routinely? Yes Information not available 02/26/2025 Seat Belts Used Routinely Yes [email or web address] Information not available 03/25/2015 Are You Sexually Active? Yes [email or web address] Information not available 03/25/2015 Do You Have Smoke And Carbon Monoxide Detectors In Your Home? Yes [email or web address] Information not available 03/25/2015 Are You Passively Exposed To Smoke? No [email or web address] Information no t available 03/25/2015 How Much Tobacco Do You Smoke? 0.25 PPD [email or web address] Information not available 03/25/2015 Smoking Pre- No [email or web address] Information not available 03/25/2015 General Stress Level Low Information not available 12/01/2015 Do You Use Sunscreen Routinely? Yes [email or web address] Information not available 03/25/2015 Supplements Vitamins [email or web address] Information not available 03/25/2015 On What Date Was Tobacco Cessation Counseling Provided? 02/26/2025 Information not available 02/26/2025 How Many Years Have You Smoked Tobacco? 10 [email or web address] Information not available 03/25/2015 Sex: Female Functional Status Question Answer Note LastModified by Organizat ion Details LastModified Time Do you use any illicit or recreational drugs? No Information not available 02/26/2025 Do you or have you ever used any other forms of tobacco or nicotine? No Information not available 02/26/2025 What is your level of alcohol consumption? None [email or web address] Information not available 03/25/2015 Do you or have you ever used smokeless tobacco? Never used smokeless tobacco Information not available 09/29/2019 Are you currently employed? Yes [email or web address] Information not available 03/25/2015 Are you able to care for yourself independently? Yes Information not available 02/26/2025 Do you or have you ever used e-cigarettes or vape? Never used electronic cigarettes Information not available 09/29/2019 What is your exercise level? Moderate [email or web address] Information not available 03/25/2015 Mental Status None recorded. Family History Relationship Description Onset Age of this Age Resolved Age Notes LastModified by Organization Details LastModified Time Mother Depressive disorder [email or web address] Not available 11/30 11:58:58 Father Diabetes mellitus [email or web address] Not available 11/30 11:58:58 Maternal Grandmother Diabetes mellitus [email or web address] Not available 11/30 11:58:58 Maternal Grandmother Malignant neoplasm of breast [email or web address] Not available 11/30 11:58:58 Maternal Grandfather Diabetes mellitus [email or web address] Not available 11/30 11:58:58 Paternal Grandmother Diabetes mellitus [email or web address] Not available 11/30 11:58:58 Paternal Grandmother Pancreaticos plenic lymphadenopa thy [email or web address] Not available 11/30 11:58:58 Paternal Grandfather Diabetes mellitus [email or web address] Not available 11/30 11:58:58 Paternal Grandfather Malignant neoplasm of lung [email or web address] Not available 11/30 11:58:58 Paternal Grandfather Family history of cancer of colon [email or web address] Not available 11/30 11:58:58 Medical History Condition Response Coronary Artery Disease N Blood Diseases N Kidney Cyst N Hyperthyroidism N Blood Transfusion N MRSA N Blood disorders N Emphysema N COPD N Blood Clots N Depression N Pneumonia N Peripheral Arterial Disease N Premature N Edema N TIA N Headaches/Migraines Y Anxiety Disorder N Obesity N Infertility N Polyps N Acid Reflux (GERD) N Hematuria N Stroke N Neck Injury N Polio N Hospital Admission other than Y Neurologic Disorder N Other Sleep Disorders N Rheumatoid Arthritis N Fibromyalgia N Abdominal Aortic Aneurysm Repair N Kidney Disease N Heart Conditions N Heart Disease/Heart Problems N Hospitalizations N Brain Tumors N Acne N Eating Disorder N Skin Problems N Constipation N Meningitis N Tuberculosis N Cerebral Palsy N Myocardial Infarction N Asthma N Substance Abuse N Peripheral Vascular Disease N Vertigo N Sleep Disorder N Cirrhosis N Pulmonary Embolism N Chicken Pox N Flomax Use Past or Present N Hematologic Disease N Anxiety/Depression N Thyroid Disease N Colon Cancer N Glaucoma N Lung Disease N Developmental or Behavioral Disorders N Bipolar N Pacemaker N Diverticulitis/Diverticulosis N Anesthesia Complications N Orthopedic Problems N Orthotics N Head Injury/Concussion N Congenital Anomalies N Gore Bite N Chronic Kidney Disease N Endometriosis N Liver Disease N Dialysis N Schizophrenia N Speech Delay N Chronic Obstructive Pulmonary Disease N Parkinson's Disease N Thyroid Problems N GI Problems N Developmental Delay N Anemia Y Immune System Disorder N Multiple Sclerosis N Colon Polyps N Heart Attack (LA) N Diabetes Y Cardiomyopathy N Blood Transfusions N Heart Problems/Murmur N Eye Trauma N Congestive Heart Failure (CHF) N Valvular Heart Disease N Hyperlipidemia N Double Vision N Abuse/Domestic Violence N Hepatitis B N Lupus N Epilepsy/Seizures N Reflux/GERD N Aneurysm N Bronchitis N Heart Disease N Hypertension N Pre-Eclampsia N Heart Failure N Other N Gout N High Blood Pressure N Atrial Fibrillation N Kidney Stones N Head Trauma/Injury N Congenital Heart Disease N Spine Problems N Gastrointestinal Disease N Lung Mass N Sinusitis N Obstructive Sleep Apnea N Muscle, Joint, or Bone Problems N Autoimmune disease N Vision or Eye Problems N Arthritis N Blood Clot N Cancer N Seasonal allergies N Leg or Foot Ulcers N Raynaud's Disease N Aortic Aneurysm N Arrhythmia N Headaches N Heart Problems N Ambloypia N Ear or Hearing Problems N Hyperparathyroidism N Migraines N Artificial Joints N Kidney or Bladder Problems N NSAID Use N Encephalitis N PTSD N Ulcers N Prostate Hypertrophy N Bleeding Disorder N AIDS/HIV N Urinary Tract Infection Y Back Problems N Allergies N Atrial Flutter N GERD/Reflux Y Hepatitis N Autism Spectrum Disorder (ASD) N Breast Cancer N Hernia N Hypothyroidism N Breast Problem N Genitourinary Disease N Deep Vein Thrombosis N Varicose Veins N Cystic Fibrosis N Hearing Loss N Developmental Problems N Carotid Disease N Vitamin D Deficiency Y ADHD N Bladder or Kidney Problems N High Cholesterol N [place] N Valvular Abnormalities N Psychiatric/Mental Health Condition N Organ Transplant N Foot Deformity N Allergies/Hayfever N Dyslipidemia N Hyponatremia N Diabetic Eye Disease N Osteoporosis/Osteopenia N Back Pain N Proteinuria N Mental Illness N Neurological Problems N Ovarian Cancer N Bedwetting N Seizures/Epilepsy N Kidney Failure N Ocular trauma N Dementia N Diverticulitis N Sleep Apnea N Mental Problems N Warfarin Management N Osteoporosis N Gynecological History Statement/Question Response Abnormal Pap Y Flow Moderate On BCP's at Conception? N STIs/STDs N HPV Vaccine Y Duration of Flow (days) 6 Age at Menarche 13 Current Control Method Tubal Ligat ion Age at First Child 26 Frequency of Cycle (Q days) 28 Sexually Active? Y Menses Monthly Y Date of Last Pap Smear 01/23/2017 Sexual Problems? Y LMP Approximate Desired Control Method Sterilizati on Obstetrics History GPAL:G 3 P 2 0 1 2 Type Value Multiple Births 0 Full Term 2 Induced 1 Spontaneous 0 Premature 0 Living 2 Ectopics 0 Total 3 Immunizations Vaccine Type Date Status Note Provider Nam e and Address Organization Details Recorded Time COVID-19, mRNA, LNP-S, PF, 30 mcg/0.3 mL dose 1 completed Bacilio auguste [place] - [facility] 12/20/2020 11:21:29 COVID-19, mRNA, LNP-S, PF, 30 mcg/0.3 mL dose 1 completed Bacilio aug[place]e [place] - [facility] 12/20/2020 11:21:49 Hep A, adult 4 completed Not Available [facility] 02/26/2025 09:32:25 Influenza, split virus, trivalent, preservative 5 completed Not Available [facility] 07/11/2019 02:32:02 Influenza, split virus, quadrivalent, preservative 5 completed Not Available [facility] 07/11/2019 02:32:10 Past Encounters Encounter ID Performer Location Encounter Start Date Encounter Closed Date Diagnosis/Indication Diagnosis SNOMED-CT Code Diagnosis ICD10 Code Diagnosis IMO Codes Diagnosis Note [id number] Gonzalez [facility] [address] [place] [address] [id number] 0 09/21/2014 15:18:34 09/21/2014 17:12:29 History of abnormal cervical Papanicolaou smear [id number] Family [facility] surveillance [id number] Administra tion of influenza vaccine 40265819 [id number] Gonzalez Colorado MD [facility] ([facility] [employer]) [address] [place] [address] 83042-824 0 03/09/2015 10:12:11 03/09/2015 11:48:01 Normal 85310933 Acute urin te tract infection 295584101 Group B St reptococcus carrier [id number] 103 Deliveries by [id number] History of RhD negative 055940204 Female sterilization 77325269 Irritable bowel syndrome 43970732 History of bariatric surgical procedure 488610895 gastric sleeve 10/05/2013 Abnormal progesterone 049238834 [id number] Gonzalez Colorado MD [facility] ([employer]) [address] [place] [address] [id number] 0 03/25/2015 09:51:43 03/25/2015 10:25:20 Normal 58782761 Z33.1 [id number] Gonzalez Colorado MD [facility] ([employer]) [address] [place] [address] 02117-141 0 04/06/2015 09:53:38 04/06/2015 11:18:01 Normal 89573080 Z33.[address] reptococcus carrier 6815553925 103 Z22.330 Abnormal progesterone 13 8027274 R94.7 Urinary tr act infectious disease 25239265 N39.0 Administra tion of influenza vaccine 16612244 Z23 [id number] Gonzalez Colorado MD [facility] ([employer]) [address] [place] [address] [id number] 0 05/04/2015 09:56:00 05/04/2015 12:06:09 Normal 51950523 Z33.1 Deliveries by [id number] O82 Female sterilization [address] reptococcus carrier 9727601635 103 Z22.330 History of RhD negative 649012767 Z87.898 Urinary tr act infectious disease 99128236 N39.0 [id number] Gonzalez [place] [facility] [address] [place] [address] 76808-655 0 06/01/2015 09:53:12 06/01/2015 11:39:11 Normal 01388361 Z33.1 Urinary tr act infectious disease 06820574 N39.0 History of RhD negative 662561292 Z87.[address] reptococcus carrier 8397565373 103 Z22.330 Female sterilization 608 45938 Z30.2 Deliveries by [id number] O82 [id number] Gonzalez [place] [facility] [employer] [facility]) [address] [place] [address] [id number] 0 06/29/2015 14:32:17 06/29/2015 15:46:50 Normal 23321703 Z33.1 Female sterilization [address] reptococcus carrier 4818171396 103 Z22.330 History of RhD negative 838238801 Z87.898 History of bariatric surgical procedure 228816589 Z98.84 gastric sleeve 10/05/2013 [id number] MD Kourtney Choudhary ([employer]) [address] [place] [address] [id number] 0 08/02/2015 09:51:23 08/02/2015 11:12:08 Normal 88523032 Z33.1 Female sterilization [address] reptococcus carrier 3806514363 103 Z22.330 History of RhD negative 525432398 Z87.898 History of bariatric surgical procedure 259535162 Z98.84 gastric sleeve 10/05/2013 Routine an tenatal care 764407348 Z34.83 [id number] [facility] [address] [place] [address] [id number] 0 09/05/2015 09:55:12 09/05/2015 11:18:41 Routine care 764552334 Z34.83 History of RhD negative 754581077 Z87.898 Deliveries by [id number] O82 Acute urin te tract infection 194966749 N39.0 [id number] [facility] [address] [place] [address] [id number] 0 09/21/2015 09:58:38 09/21/2015 11:09:50 Routine care 285765064 Z34.83 Acute urin te tract infection 378726085 N39.0 Deliveries by [id number] O82 Female sterilization [address] reptococcus carrier 8525973647 103 Z22.330 Gastroesop hageal reflux disease 866802286 K21.9 [id number] [facility] [address] [place] [address] [id number] 0 09/29/2015 09:57:10 09/29/2015 11:42:58 Routine care 413759882 Z34.83 Deliveries by [id number] O82 [id number] [facility] [address] [place] [address] [id number] 0 10/06/2015 09:58:44 10/06/2015 14:29:34 Routine care 963292224 Z34.83 Female sterilization 608 17660 Z30.2 Deliveries by [id number] O82 History of RhD negative 068317428 Z87.[address] reptococcus carrier 4168638106 103 Z22.330 Gastroesop hageal reflux disease 134569878 K21.9 [id number] Gonzalez [place] [facility] [employer] [facility]) [address] [place] [address] [id number] 0 10/13/2015 09:52:17 10/13/2015 15:02:15 Routine care 468970004 Z34.83 Deliveries by [id number] O82 Female sterilization 608 91358 Z30.2 [id number] Hiren Doss [facility] [employer] [facility]) [address] [place] [address] [id number] 0 10/28/2015 11:13:24 11/04/2015 16:56:46 Postoperative visit 195543329 Z09 [id number] [facility] [address] [place] [address] [id number] 0 11/03/2015 11:42:49 11/03/2015 14:52:08 Deliveries by [id number] O82 Female sterilization 608 57645 Z30.2 prior tubal ligation Acute urin te tract infection 722153181 N39.0 [id number] Gonzalez [place] [facility] ([facility] [employer] [facility]) [address] [place] [address] 12/01/2015 10:43:33 12/01/2015 12:05:18 care 766307052 Z39.2 Female sterilization 608 16245 Z30.2 bilateral salpingect gregg with repeat c section Deliveries by [id number] O82 [id number] Gonzalez [place] MD [facility] ([facility] [employer] [facility]) [address] [place] [address] [id number] 0 01/23/2017 09:58:40 01/23/2017 12:27:12 Gynecologic examination 03624214 Z01.419 Exposure t o sexually transmissible disorder 851917562 Z20.2 Anemia 543385665 D64.9 [id number] [facility] [address] [place] [address] [id number] 0 09/29/2019 16:03:30 09/30/2019 09:31:54 Dehydration 17946730 E86.0 [id number] Alistair Bonilla MD [place] [id number] [place] [address] 02/07/2024 09:44:15 02/07/2024 11:15:24 Adult health examination 608829557 Z00.00 Wellness exam complete with CBC and CMP ordered Past pregn blanca history of gestational diabetes mellitus 304107837 Z86.32 Patient has a history of gestationa l diabetes and is due for annual A1c Cholesterol screening 27 6720031 Z13.220 Fasting lipid panel due Body mass index 25-29 - overweight 305548819 Z68.26 Fasting insulin due Thyroid di sorder screening 036406880 Z13.29 Routine thyroid labs ordered Positive s creening for depression on PHQ-9 (Patient Health Questionnaire 9) 3138581243 32323 Z13.31 Patient scored a 7 on screening today. She is feeling overall stable with no questions or concerns [id number] Alistair Bonilla MD [facility] [place] [address] [place] [address] 02/26/2025 09:28:44 02/26/2025 10:58:26 Adult health examination 184563960 Z00.00 Wellness exam complete with CBC and CMP ordered Past pregn blanca history of gestational diabetes mellitus 905105884 Z86.32 Patient has a history of gestationa l diabetes and is due for annual A1c Cholesterol screening 27 0481714 Z13.220 Fasting lipid panel due Body mass index 25-29 - overweight 788451429 Z68.26 Fasting insulin due Thyroid di sorder screening 963845002 Z13.29 Routine thyroid labs ordered Anemia 917603810 D64.9 Remote history of anemia. Check updated iron studies and vitamin B12 and folate Disturbanc e of attention 52695300 R41.583 [id number] pt wants evaluate for adhd. 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 Refer to Psychiatry for formal assessment and treatment if needed Skin lesion 58517957 L98 .9 [id number] pt just needs general skin check. Refer to derm Allergic disposition 609 794932 J30.89 94361818 ok to take OTC antihistam ine daily. Near syncope 281178554 R 55 561229 ? blood sugar related. to get OTC glucose kit and monitor her symptoms. This seems as though it has occurred at times when there has not been some nutritiona l intake and perhaps hydration status was a bit down and it was in the summer. This has previously been worked up on an ER visit. Chronic low back pain 27 8309579 M54.50 G89.29 68845078 Prescripti on for PRN use of Flexeril 10 mg daily as needed for low back pain flare-ups Positive s creening for depression on PHQ-9 (Patient Health Questionnaire 9) 9327889659 48987 Z13.31 9177199813 Patient scored a 9 on screening today. She has been referred to Psychiatry for formal evaluation and consult on attention deficit Health Concerns Section Related Observation LastModified by Organization Detai ls LastModified Time None Recorded Concern Status LastModified by Organization Details LastModified Time None Recorded Advance Directives Directive N: Payers Insurance Date Sequence Insurance Name Policy Number Policy Jaime Covered Member ID Jaime Member ID Guarantor Name 03/22/2025 1 [facility] Dennis Hercules [id number] Sena Hercules 02/07/2024 1 [employer] - PERSONAL CHOICE (PPO) [id number] Dennis Hercules [id number] Sena Hercules 01/23/2017 1 [employer] [employer] ([place]) [id number] Dennis Hercules [id number] Sena Hercules 09/29/2019 1 [employer] (POS) [id number] Dennis Hercules [id number] Sena Hercules Notes Date Note Type Note Provider Name and Address Organization Details Recorded Time 6 text/html VisitReported by PatientHPIFor quality, patient reportsrepeat lst c/s. For context, patient reportscomplications of : none,complications of labor: none, complications: none,feeding choice: breast and bottle, andgood support from partner/family. For associated symptoms, patient reportsno abnormal bleeding,no pelvic pain,laceration well healed,no constipation,no fecal incontinence,no dysuria,no urinary incontinence,no fever,no problems, andno mastitis. CAROLINE Shaw - [facility] 12/01/2015 12:04:34 7 text/html Annual GYNReported by PatientGenitourinary symptomsFor menstrual cycle, patient reportsnormal menses. For urinary symptoms, patient reportsno hematuriaandno incontinence. For vulva, patient reportsno genital lesion. For vagina, patient reportsnormal vaginal discharge.Breast symptomsFor breast, patient reportsno breast pain,no breast lump, andno nipple discharge.Endocrine symptomsFor sexual complaints, patient reportsno sexual complaints,no pain during intercourse, andnormal libido. For menopausal symptoms, patient reportsno menopausal symptomsandnormal vaginal lubrication.Psychological symptomsFor psychological symptoms, patient reportsno depression,no anxiety, andno pmdd.Preventative measuresFor preventive measures, patient reportsencourage self breast examination,encourage regular exercise,encourage no tobacco use,encourage regular mammograms starting age 40,followed with yearly pap smears, andhistory of abnormal pap smear/cervical dysplasia. 31 Y.O. presents for annual. She has no complaints, but is worried her Iron may be low. Gonzalez auguste [facility] 01/23/2017 12:11:44 0 text/html ROS as noted in the HPI 34 Y.O. back pain neg UA , but is worried about uti ketones suggest dehydration Gonzalez auguste, [facility] 09/29/2019 16:44:35 4 text/html Patient is here for annual wellness exam. She has no new complaints or concerns and is due for labs. She has a remote history of gestational diabetes. SHANTEL El Attn: Accounting,[address] [facility], [place], [address], [facility] [place] 02/23/2024 00:19:49 5 text/html Patient is here for annual wellness exam. She has no new complaints or concerns and is due for labs. She has a remote history of gestational diabetes and also anemia. She has a bit of a spike up in her seasonal allergies lately .. She does bring up an episode that happened over a year ago of a near syncopal episode which she went to the emergency room. She had another similar but not quite as involved episode. The emergency room did not find any abnormalities on testing when she went there a year ago. She also has complaint of chronic low back pain that waxes and wanes and she is interested in discussion for some treatment on as-needed basis. Lastly she is wanting to be screened for ADHD. She is having a lot of attention disturbance and focus issues. She is in a new job role and it is more prominent and causing some issues. SHANTEL El Attn: Accounting,[address] [facility], [place], [address], [facility] [place] 03/20/2025 12:34:32 OBGyn Episode Ob Episode Information Episode Created Date Number of Fetuses Patient Bloodtype Patient rh Status Prepregnancy Weight lbs Domestic Partner Domestic Partner Phone Father Name [employer] Fertility Extension Specialist Status 09/22/19 15 1 CLOSED Fetus Data First Name Last Name Admitted to NICU Weight (g) Sex Living Outcome Pediatric Complications Fetus ID Race Codes Race Delivery Type 3657.08 56 F Full Term [id number] Aki Calculation Initial Aki Date Initial Exam Date Initial Exam Provider Initial Ultrasound Date Last Menstrual Period Date Ultra Sound Weeks Gestation 0 Eighteen To Twenty Week Aki Update Ultra Sound Date Fundal Height At Umbil Quickening Date Ultra Sound Latest Weeks Gestation Final Aki Confirmed By Final Aki Confirmed Date Final Aki Date Ultra Sound Latest Days Gestation 0 0 Menstrual History Last Menstrual Date Menses Monthly On Bcp Conception Prior Menses Frequency Hcg Plus Date Menarche Onset Age Delivery Information Delivery Date Delivery Type Labor Anesthesia Weeks Gestation Incision Type Labor Labor Length Hrs Delivered By Post Complications Tubal Sterilization Discharge Date Comments 2 Regional-Ep idural 37 false 36 Gestatio n al diabetes, hemorrhag e Discharge Information Feeding Method Contraceptive Method Maternal HG B and HCT Levels Ob Episode Information Episode Created Date Number of Fetuses Patient Bloodtype Patient rh Status Prepregnancy Weight lbs Domestic Partner Domestic Partner Phone Father Name [employer] Fertility Extension Specialist Status 09/22/19 15 1 CLOSED Fetus Data First Name Last Name Admitted to NICU Weight (g) Sex Living Outcome Pediatric Complications Fetus ID Race Codes Race Delivery Type , Induced [id number] Aki Calculation Initial Aki Date Initial Exam Date Initial Exam Provider Initial Ultrasound Date Last Menstrual Period Date Ultra Sound Weeks Gestation 0 Eighteen To Twenty Week Aki Update Ultra Sound Date Fundal Height At Umbil Quickening Date Ultra Sound Latest Weeks Gestation Final Aki Confirmed By Final Aki Confirmed Date Final Aki Date Ultra Sound Latest Days Gestation 0 0 Menstrual History Last Menstrual Date Menses Monthly On Bcp Conception Prior Menses Frequency Hcg Plus Date Menarche Onset Age Delivery Information Delivery Date Delivery Type Labor Anesthesia Weeks Gestation Incision Type Labor Labor Length Hrs Delivered By Post Complications Tubal Sterilization Discharge Date Comments [address] no medical reason Discharge Information Feeding Method Contraceptive Method Maternal HG B and HCT Levels Ob Episode Information Episode Created Date Number of Fetuses Patient Bloodtype Patient rh Status Prepregnancy Weight lbs Domestic Partner Domestic Partner Phone Father Name Soil Fertility Extension Specialist Status 03/09/20 15 1 B Negative [address] Cedillo? CLOSED Fetus Data First Name Last Name Admitted to NICU Weight (g) Sex Living Outcome Pediatric Complications Fetus ID Race Codes Race Delivery Type [place] chanel true 3316.89 15 F true Full Term [id number] White Problems Problem Notes having a baby girl, Name is going to be Mathew Hercules, repeat , PPBC is PPBTL. papers signed and dated 08/02/2015, shipping and receiving weigher is Dr. Cedillo. 06/29/2015 Problem Name Start Date End Date Resolution Snomed Code Not e Irritable bowel syndrome 36091 008 Varicella [id number] Acute urinary tract infection [id number] Deliveries by 04 Abnormal progesterone [id number] 0 Subchorionic hematoma 88856329 4 Urinary tract infectious disease [id number] Gastroesophageal reflux disease [id number] Aki Calculation Initial Aki Date Initial Exam Date Initial Exam Provider Initial Ultrasound Date Last Menstrual Period Date Ultra Sound Weeks Gestation 10/24/2015 03/09/2015 [facility] 03/15/2015 01/14/2015 8 Eighteen To Twenty Week Aki Update Ultra Sound Date Fundal Height At Umbil Quickening Date Ultra Sound Latest Weeks Gestation Final Aki Confirmed By Final Aki Confirmed Date Final Aki Date Ultra Sound Latest Days Gestation 0 [facility] 04/06/2015 016 0 Pre- Flowsheet Flowsheet Date 03/09/2015 Salazar Score Blood Edema Fundus Height Fundus Units Glucose Ketones Leukocytes Nitrite Labor Signs Protein Cervic Dilation Cervic Effacement Cervic Station Type Weight in lbs Pre/Post Dialysis Refused 159.901180806277 BP Diastolic BP Location Tested BP Systolic BP Type 78 118 sitting Fetus Heart Rate Present Fetus Movement Comments Flowsheet Date 03/25/2015 Salazar Score Blood Edema Fundus Height Fundus Units Glucose Ketones Leukocytes Nitrite Labor Signs Protein Cervic Dilation Cervic Effacement Cervic Station Type Weight in lbs Pre/Post Dialysis Refused BP Diastolic BP Location Tested BP Systolic BP Type Fetus Heart Rate Present Fetus Movement Comments Flowsheet Date 04/06/2015 Salazar Score Blood Edema Fundus Height Fundus Units Glucose Ketones Leukocytes Nitrite Labor Signs Protein Cervic Dilation Cervic Effacement Cervic Station neg none none negative none trace Type Weight in lbs Pre/Post Dialysis Refused 159.989775224173 BP Diastolic BP Location Tested BP Systolic BP Type 64 112 sitting Fetus Heart Rate Present A Present Fetus Movement Comments nitrate pos. Flowsheet Date 05/04/2015 Salazar Score Blood Edema Fundus Height Fundus Units Glucose Ketones Leukocytes Nitrite Labor Signs Protein Cervic Dilation Cervic Effacement Cervic Station neg none 15 wks none negative none neg Type Weight in lbs Pre/Post Dialysis Refused 164.83462863021 BP Diastolic BP Location Tested BP Systolic BP Type 64 102 sitting Fetus Heart Rate Present A 152 Present Fetus Movement A No Comments another fuing girl per th e patient. and the ultrasound, MATHEW MANUEL Flowsheet Date 06/01/2015 Salazar Score Blood Edema Fundus Height Fundus Units Glucose Ketones Leukocytes Nitrite Labor Signs Protein Cervic Dilation Cervic Effacement Cervic Station neg none 20 cm none negative none neg Type Weight in lbs Pre/Post Dialysis Refused 172.287273960179 BP Diastolic BP Location Tested BP Systolic BP Type 62 110 sitting Fetus Heart Rate Present A 156 Present Fetus Movement A Yes Comments recurrent uti macrobid with ic for e coli husb needs tdap/flu Flowsheet Date 06/29/2015 Salazar Score Blood Edema Fundus Height Fundus Units Glucose Ketones Leukocytes Nitrite Labor Signs Protein Cervic Dilation Cervic Effacement Cervic Station neg none 16 cm none small none 1+ Type Weight in lbs Pre/Post Dialysis Refused 178.967167067566 BP Diastolic BP Location Tested BP Systolic BP Type 58 108 sitting Fetus Heart Rate Present A 149 Present Fetus Movement A Yes Comments 22cm transverse, provided OB F/U packet, Rh- so sent to hospital Flowsheet Date 08/02/2015 Salazar Score Blood Edema Fundus Height Fundus Units Glucose Ketones Leukocytes Nitrite Labor Signs Protein Cervic Dilation Cervic Effacement Cervic Station neg none 29 cm none negative none trace Type Weight in lbs Pre/Post Dialysis Refused 186.870134273460 BP Diastolic BP Location Tested BP Systolic BP Type 60 108 sitting Fetus Heart Rate Present A 148 Present Fetus Movement A Yes Comments Flowsheet Date 09/05/2015 Salazar Score Blood Edema Fundus Height Fundus Units Glucose Ketones Leukocytes Nitrite Labor Signs Protein Cervic Dilation Cervic Effacement Cervic Station trace none 29 cm none negative Cramping neg Type Weight in lbs Pre/Post Dialysis Refused 193.28896266345 BP Diastolic BP Location Tested BP Systolic BP Type 60 100 sitting Fetus Heart Rate Present A 138 Present Fetus Movement A Yes Comments some lower abdominal crampin g after being on feet Flowsheet Date 09/21/2015 Salazar Score Blood Edema Fundus Height Fundus Units Glucose Ketones Leukocytes Nitrite Labor Signs Protein Cervic Dilation Cervic Effacement Cervic Station neg none 31 cm none negative none neg Type Weight in lbs Pre/Post Dialysis Refused 196.033488327857 BP Diastolic BP Location Tested BP Systolic BP Type 72 96 sitting Fetus Heart Rate Present A 132 Present Fetus Movement A Yes Comments 30yo WF jose, getting 36 week labs. Complains of GERD, tums not working. Flowsheet Date 09/29/2015 Salazar Score Blood Edema Fundus Height Fundus Units Glucose Ketones Leukocytes Nitrite Labor Signs Protein Cervic Dilation Cervic Effacement Cervic Station neg none 38 cm none negative none neg 0cm 50% - 3 Type Weight in lbs Pre/Post Dialysis Refused 197.483379001198 BP Diastolic BP Location Tested BP Systolic BP Type 82 124 sitting Fetus Heart Rate Present A 152 Present Fetus Movement A Yes Comments Flowsheet Date 10/06/2015 Salazar Score Blood Edema Fundus Height Fundus Units Glucose Ketones Leukocytes Nitrite Labor Signs Protein Cervic Dilation Cervic Effacement Cervic Station neg none 38 cm none negative neg 0cm 50%

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
--- OUTSIDE RECORDS SUMMARY | 2025-06-22 01:17 | XMS_ITS | Patient Health Record ---
Author Organization [facility] [employer] Address [address] [facility] [address] [place] [address] Care Team Providers Care Finance Administrator Name Role Phone Fiona Almanza Primary Care Provider Carlyn Hurley Unavailable [phone] DorothyGulshanKai Unavailable [phone] Allergies No Known Allergies Results Component Value [...] Are you still using? No AUDIT-C (Standard) Points 2 Interpretation Positive Did you have a drink contain ing alcohol in the past year? Yes How often did you have six or [...] last smoked? 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 Marijuana use: Uses two pinches almost nightly for sleep for past year and a half Problems Problem Type SNOMED Code ICD Code Onset Dates Problem Status W/U Status Risk Notes Problem Attention deficit hyperactivity disorder (427101823) Attention-deficit hyperactivity disorder, unspecified type (F90.9) Active confirmed Problem Attention deficit hyperactivity disorder (257274255) Attention deficit hyperactivity disorder (ADHD), unspecified ADHD type (F90.9) Active confirmed Vital Signs Heart Rate 71 /min 06/11/2025 Blood pressure diastolic 73 mm Hg 06/11/2025 Weight-kg 74.39 kg 06/11/2025 Blood pressure systolic 108 mm Hg 06/11/2025 Weight 164 lbs 06/11/2025 Encounters Encounter Location Date Provider Diagnosis [facility] [address] [place] [address] 05/28/2025 Carlyn Hernandez Attention-deficit hyperactivity disorder, unspecified type F90.9 [employer] [facility] [address] [place] [address] 06/04/2025 Kai De La Cruz Attention deficit hyperactivity disorder (ADHD), unspecified ADHD type F90.9 [employer] [facility] [address] [place] [address] 06/11/2025 Carlyn Hernandez Attention deficit hyperactivity disorder [...] Of Treatment Next Appt Details Provider Name:Carlyn Tolbert Bekaeddie justyn, 07/23/2025 08:30:00 AM, [facility] [facility] [address] [facility] [address], [place], [address], Insurance Providers Payer Name Payer Address Payer Phone Subscriber Number Group Number Insured Name Patient Relationship to Insured Coverage Start Date Coverage End Date [facility] [address] [place] [phone] [id number] Sena Hercules Self - patient is the [...]
[2025-06-22 06:45] VITALS: BP 110/77; PULSE 82; RESP 16; TEMP 36.6; O2SAT 99
[2025-06-22] MEDS: ACETAMINOPHEN 500 MG TABLET 1000 MG PO (06:45)
[2025-06-22] MEDS: LACTATED RINGERS 1,000 ML 30 ML IV CONT (06:45)
--- NOTE | 2025-06-22 06:51 | P.PNAN_ITS ---
Anes - Initial Pre Proc Eval Procedure: Operation Date: 06/22/25 07:30 Proposed Procedures p Hysteroscopy Dilation and Curettage with Gracie Endometrial Ablation - Nick Aguirre MD Date/Time: 06/22/25 06:51 Surgeon: Nick Aguirre MD Pre Op Diagnosis: Abnormal Uterine Bleeding Patient Data Age: 39 Gender: F Height: 1.63 m Weight: 75 kg Allergies Allergy/AdvReac Type Severity Reaction Status Date / Time No Known Allergies Allergy Verified 06/22/25 07:05 Home Medications ?Medication ?Instructions ?Recorded ?Confirmed ?Type No Home Medications 01/08/25 06/22/25 H istory Patient hx anesthesia problems: none Family hx anesthesia problems: none Results Review: All pre-operative results and documents have been reviewed as part of the pre- operative evaluation. [facility] Past Medical History Medical History Gestational diabetes Obesity Depression Anxiety Skin laxity Surgical History Surgical History S/P abdominoplasty S/P brachioplasty 07/06/2022 - bilateral - 07/20/2021 History of cholecystectomy 2011 Delivery by section 2012 History of gastrointestinal surgery gastric sleeve History of tubal ligation 2016 Family History Family History Mother Family history of congestive heart failure Diabetes mellitus Hypertension Father Diabetes mellitus Grandparent Diabetes mellitus Breast cancer Social History Social History (Updated 01/08/25 @ 10:59 by Lo Hdz CMA) Smoking packs per day: 0.2 Smoking cigarettes per day: 4.0 Years smoked: 7 Smoking pack-years: 1.40 Smoking status: Former smoker Tobacco type: cigarettes and e-cigarettes/vaping Smoking end date: 06/24/11 Additional smoking assessment comments: QUIT 2022 Alcohol intake: current Drinks per week: 1 Alcohol use details: 6 PER YR Substance use: never Substance use type: marijuana Other substance usage details: NIGHTLY FOR SLEEP, GUMMIES Lack of Transportation: No Lack of Food: Never True Current Housing: I Have Housing Concerned About Future Housing: No Difficulty Paying Gas/Electric Bills: No Difficulty Paying for Meds: No Currently Unemployed: No Education: High School Diploma/GED Difficulty w/ Childcare or Family Care: No Living arrangements: with family Spiritual care concerns: No Anes - Eval Final PreProcedure Day of Procedure 06/22/25 06:51 Patient weight: overweight Heart: regular rate and rhythm Lungs: clear to auscultation Airway: Mallampati scale class II Neurological: alert and oriented Last oral intake: >/= 8 hours ASA classification: II Emergent: no Anesthetic plan: proceed Anesthesia type and monitoring: general GIVS and standard monitoring Results Review: All pre-operative results and documents have been reviewed as part of the pre- operative evaluation. Informed Consent: The patient's anesthetic plan and its attendant risks and benefits were discussed with the patient/family/POA. Questions were solicited and answers provided to the satisfaction of the patient/family/POA.
--- NOTE | 2025-06-22 07:03 | WPDHPUPDATE1 ---
History and Physical Update Update Date/Time: 06/22/25 07:03 History and Physical has been reviewed, including an updated exam of the patient. There are NO changes in the patient's condition. Risks, benefits, and alternatives have been discussed and questions answered. Patient agrees to proceed with procedure.
[2025-06-22 07:04] LABS: BEDSIDEPREGUCG Negative (Negative)
--- NOTE | 2025-06-22 07:38 | S_PTH ---
PATIENT: Sena Hercules LOC: [facility] U#:[id number] AGE/SX: 39/F ROOM: RE06/22/[address]: Nick Aguirre MD : [id number] BED: DIS: 06/22/2025 SPEC #: [id number] RECD: 06/22/25 07:59 STATUS: BETTY REAbraham #: [id number] MARVEL: 06/22/25 07:[address]: Nick Aguirre DEPT: [facility] Surgical RECD BY: Barron Martins ENTERED: 06/22/25 07:59 SP TYPE: Surgical OTHR DR: Fiona Junior, PAArchanaC Tissues: A - Endometrial Curettings Procedures: Hematoxylin and Eosin Stain Gross and Microscopic Level 4
--- NOTE | 2025-06-22 07:47 | P.OP_ITS ---
Procedure Note - Detailed Date of Procedure 06/22/25 Pre-op Diagnosis Abnormal Uterine Bleeding Post-op Diagnosis Same Procedure Performed hysteroscopy dilation & curettage endometrial ablation Surgeon Nick Aguirre MD Anesthesia General Indications abnormal uterine bleeding Findings normal appearing intrauterine cavity. Normal tubal ostia bilaterally Description of Procedure Sena Hercules presents for the above procedure. She was counseled as to the indications, risks, benefits, and alternatives to surgery, with the risks including bleeding, infection, damage to surrounding organs, VTE, and complications of anesthesia. Her verbal and written consent was obtained. PROCEDURE: The patient was taken to the OR and general anesthesia induced. She was prepped and draped in Genaro stirrups with support of the back and bilateral lower extremities. I/O catheterization performed of the bladder. The above findings were noted. A single tooth tenaculum was placed on the anterior lip of the cervix. The uterus sounded to 7.5 cm. The cervix was dilated with sequential Rachna dilators. Hysteroscopy, using a normal saline medium, was performed and showed the above findings. Sharp uterine curettage was then p erformed and tissue placed on Telfa. The Gracie device was set to a depth of 5.5 cm. The device was inserted into the uterus and deployed. Good fit was reassured by the device indicator. The cervical balloon was insufflated to ensure a good seal. Uterine integrity test was performed by the Gracie device and was successful. The device was then activated. The entire ablation procedure lasted 120 seconds. The cervical balloon was desufflated and the device was removed from the uterus. The hysteroscope was re-introduced to ensure adequate tissue ablation. The tenaculum was removed and hemostasis was observed. The patient tolerated the procedure well. Sponge, lap, and needle counts were correct. The patient had SCD's on throughout the case for VTE prophylaxis. The patient was taken to the recovery room in stable condition. Estimated Blood Loss 5 Drains No Packing No Pathology Yes (endometrial curettings ) Complications No immediate complications Condition Stable Disposition PACU [facility] Billing Surgery - Charge Forward: Surgery Billing
[2025-06-22 07:49] VITALS: BP 95/60; PULSE 57; RESP 14; O2SAT 97
[2025-06-22 08:10] VITALS: BP 112/67; PULSE 51; RESP 14; O2SAT 99
[2025-06-22 08:35] VITALS: BP 134/61; PULSE 51; RESP 14
== END 2025-06-22 08:40 | disposition home or self-care (01) ==
PROVIDERS: PCP Physician Assistant; Visit Provider Student in an Organized Health Care Education/Training Program
PROC: 0U5B8ZZ Destruction of Endometrium, Via Natural or Artificial Opening Endoscopic (ICD-10-PCS; CPT 58563; principal; 2025-06-22 07:30)
DX: N93.9 Abnormal uterine and vaginal bleeding, unspecified (principal); Z87.891 Personal history of nicotine dependence; F12.90 Cannabis use, unspecified, uncomplicated
CPT/HCPCS: 58563; 88305; A9270; J2250; J2704; J3010; J7120